=== PATIENT | female | born 2005 ===

== ENCOUNTER 2024-07-24 10:07 | Outpatient (AMB) | payer OTHER, SELFPAY ==
[2024-07-24 10:11] VITALS: BP 104/60; PULSE 86; TEMP 37.2; O2SAT 98; BMI 22.0
--- NOTE | 2024-07-24 10:11 | A.OFFPC_ITS ---
Vital Signs 07/24/24 10:11 Height 5 ft 1 in Weight 116 lb 6.4 oz BMI 22.0 BP 104/60 Blood Pressure Location Lt brachial Position Sitting Pulse 86 Pulse Source Pulse Oximeter Temp 98.9 F Temp Source Oral Pulse Oximetry (%) 98 Oxygen Delivery Method Room Air Intake Visit Reasons: establish care Intake Note: Patient is a new patient here to establish care. Transferring care from [facility]. Medical records have been requested and have not received. Commissary Officer Required: No Accompanied by: Self / Same As Patient Allergies No Known Allergies Allergy (Unverified 07/24/24 10:29) Medication List - Last Reconciled 07/24/24 by TROY Michel No Known Home Meds Tobacco use date assessed: 07/24/24 Dental Screening Dental Screen Date: 07/24/24 Did you have a dental visit in the last 12 months?: Yes Did you have a dental problem in the last 6 months where you did not have access to dental care?: No Was dental information given to patient?: Patient has dentist HPI establish care HPI Details The patient is 18-year-old female presenting to establish care Previous PCP: [facility] Last visit: Last PE: 2 years Specialist: n/a OBGYN: no-will put in a referral Past medical history: Asthma-no medication right now, mild scoliosis Medications: Family HX: Mother had breast mass, first cousin has breast mass, sister thyroid mass Problem: Reports that intermittent symptoms of feeling like she is having an asthma attack these symptoms are lasting for 2-3 minutes-denies wheezing or heart palpitation or chest pain For three weeks she was having back pain that since has settled now reports that she thinks that it is due to bad pasture reports that it is a mild pain that feels like stiffness in her back obgyn referral-[facility] Medical History (Updated 07/24/24 @ 15:37 by TROY Michel) Asthma Scoliosis Surgical History Hx of tonsillectomy Family History Mother H/O: hysterectomy Arthritis Sister Thyroid cancer Other Breast mass Social History Household Members Other:: Mother and younger brother Housing: House Alcohol intake: never Patient Tobacco Use Status: Never used Tobacco e-Cigarette/Vaping Use: Never Used Second Hand Smoke Exposure: No service: No Current occupational status: employed and student 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 1. Little interest or pleasure in doing things: not at all 2. Feeling down, depressed, or hopeless: not at all 3. Trouble falling or staying asleep, or sleeping too much: more than half the days 4. Feeling tired or having little energy: several days 5. Poor appetite or overeating: nearly every day 6. Feeling bad about yourself - or that you are a failure or have let yourself or your family down: not at all 7. Trouble concentrating on things, such as reading the newspaper or watching television: not at all 8. Moving or speaking so slowly that other people could have noticed. Or the opposite - being so fidgety or restless that you have been moving around a lot more than usual: not at all 9. Thoughts that you would be better off or of hurting yourself in some way: not at all Total score: 6 Depression Screening Interpretation: Positive Depression Screening Done: Yes 25375 - PHQ-9 Billing: Yes Source: Developed by Drs. Milo Almeida, Corrina Garcia, Manoj Aguayo and colleagues, with an educational damaris from [employer]. Thrive Questionnaire Date Thrive assessed: 07/24/24 I am a: Patient What is your living situation today?: I have a steady place to live Within the past 12 months, did the food you bought not last and you didn't have the money to get more?: I choose not to answer this question Within the past 12 months, did you worry whether your food would run out before you got money to buy more?: I choose not to answer this question Do you have trouble paying for medicines?: No Do you have trouble getting transportation to medical appointments?: No Do you have trouble paying your heating and electricity bill?: Yes Do you have trouble taking care of your child, family member or friend?: No Do you have trouble with day-to-day activities such as bathing, preparing meals, shopping, managing finances, etc.?: No Are you currently unemployed and looking for a job?: No Are you interested in more education?: I choose not to answer this question Please select the resources that you would like help with: Utilities Currently or been in a relationship where the following occur: No concerns reported THRIVE Score: 1 AUDIT C Alcohol Use Questionnaire (AUDIT-C) 1. How often do you have a drink containing alcohol?: Never Total Score: 0 SANDEEP-7 AMB Questionnaire SANDEEP-7 Date SANDEEP - 7 assessed: 07/24/24 Feeling nervous, anxious, or on edge: 1 = Several days Not being able to stop or control worryin = Not at all Worrying too much about different things: 2 = More than half the days Trouble relaxin = Not at all Being so restless that it is hard to sit still: 0 = Not at all Becoming easily annoyed or irritable: 1 = Several days Feeling afraid as if something awful might happen: 0 = Not at all Total SANDEEP-7 score (0-4 normal; 5-9 mild; 10-14 moderate; 15-21 severe): 4 Source: Developed by Drs. Milo Almeida, Corrina Garcia, Manoj Aguayo and colleagues, with an educational damaris from [employer]. SANDEEP-7 Assessment Billing SANDEEP-7 Assessment Tool: SANDEEP-7 Assessment 17680 Review of Systems Const Denies headache(s) Eyes Denies loss of vision ENT Denies vertigo, Denies dizziness, Denies headache(s) and Denies sore throat Card Denies chest pain, Denies leg edema and Denies lightheadedness Resp Denies cough, Denies hemoptysis and Denies wheezing GI Denies abdominal pain, Denies melena, Denies constipation, Denies diarrhea and Denies vomiting Denies urinary frequency, Denies dysuria and Denies urinary urgency Musc Denies arthralgias, Denies joint swelling, Denies numbness and Denies tingling Neuro Denies Abnormal speech present, Denies behavioral changes, Denies vertigo, Denies dizziness, Denies headache(s), Denies loss of vision, Denies memory loss, Denies numbness and Denies tingling Psych Denies anxiety, Denies behavioral changes, Denies depression, Denies memory loss and Denies panic attacks Kwesi/Lymph Denies easy bleeding and Denies easy bruising Aller/Immun Denies wheezing Physical exam (Primary Care) Vital Signs: Last Vital Signs Temp 98.9 F 07/24/24 10:11 Pulse 86 07/24/24 10:11 BP 104/60 07/24/24 10:11 Pulse Ox 98 07/24/24 10:11 Oxygen Delivery Method Room Air 07/24/24 10:11 BMI result Body Mass Index 22.0 Tobacco/Smoking Status: Tobacco use Status Tobacco use date assessed 07/24/24 07/24/24 10:27 Patient Tobacco Use Status Never used Tobacco 07/24/24 10:27 e-Cigarette/Vaping Use Never Used 07/24/24 10:27 PHQ-9: PHQ-9 Score PHQ-9: Total score 6 07/24/24 10:35 Depression Screening Interpretation: Positive Thrive Assessment: Date of Thrive Assessment Date Thrive assessed 07/24/24 07/24/24 10:27 Currently or been in a relationship where the following occur: No concerns reported Const General: healthy appearing, no acute distress, alert and awake Nutritional Appearance: well nourished Orientation/consciousness: oriented to person, oriented to place and oriented to time HENMT Ears: TM's normal bilaterally General nose exam: Normal nasal mucous membranes and turbinates present Eyes Conjunctivae: conjunctivae normal Sclerae: sclerae normal Pupils: Equal, round and reactive pupils present Neck Neck: Yes no lymphadenopathy and Yes no JVD Thyroid: Thyroid normal Carotids: no bruits Resp Effort & Inspection: normal respiratory effort and not tachypneic Auscultation: no crackles, no rales, no rhonchi and no wheezes Cardio Rate: regular rate Rhythm: regular rhythm Heart sounds: no murmurs and normal S1 and S2 GI Palpation (GI): Soft to palpation, nontender, no hepatomegaly and no splenomegaly Auscultation: normal bowel sounds General: Yes no CVA tenderness Back/Spine/Pelvis Back: no CVA tenderness Skin General skin exam: no rashes or lesions noted and dry skin Neuro General: oriented to person, oriented to place and oriented to time Cranial nerves: Yes Equal, round and reactive pupils present Speech: No Abnormal speech present Gait exam (Neuro): Normal gait present Motor exam (neuro): no tremor noted Extrem Right upper extremity: full ROM Left upper extremity: full ROM Right lower extremity: full ROM; no edema Left lower extremity: full ROM; no edema Psych Mental Status: mental status grossly normal Speech and movement: Normal speech and movement present Affect: normal affect Attitude: cooperative Thought process: Normal thought process present Coding Level of Care Code New Pt Level 3 (73359) Diagnoses Mild persistent asthma without complication J45.30 Asthma severity: mild Asthma persistence: persistent Asthma complication type: uncomplicated Juvenile idiopathic scoliosis of thoracolumbar region M41.115 Scoliosis type: idiopathic Idiopathic scoliosis type: juvenile Spinal region: thoracolumbar Women's annual routine gynecological examination Z01.419 Additional Codes SANDEEP-7 Assessment Billing - SANDEEP-7 Assessment Tool: SANDEEP-7 Assessment 40888 ([id number]) PHQ-9 - 54662 - PHQ-9 Billing: Yes ([id number]) Time Spent (min) 29 Assessment & Plan Assessment & Plan (1) Asthma: Code(s): J45.909 - Unspecified asthma, uncomplicated Category: Medical Qualifiers: Asthma severity: mild Asthma persistence: persistent Asthma complication type: uncomplicated Qualified Code(s): J45.30 - Mild persistent asthma, uncomplicated Plan: Patient reports that infrequently she feels some heaviness in the chest that lasts for 2 to 3 minutes Reports she does have a history of asthma but has not used an inhaler in a long time Discussed with the patient that even though her asthma is mild she should have a rescue inhaler just in case Albuterol sulfate 90 mcg/actuation 2 puffs inhalation Q 4-6 hours p.r.n. ordered (2) Scoliosis: Code(s): M41.9 - Scoliosis, unspecified Category: Medical Qualifiers: Scoliosis type: idiopathic Idiopathic scoliosis type: juvenile Spinal region: thoracolumbar Qualified Code(s): M41.115 - Juvenile idiopathic scoliosis, thoracolumbar region Plan: The patient reports that she has mild scoliosis. Reports that 3 weeks ago she had intense back pain that has resolved Reports that she thinks it is related to poor posture. Back stretches was printed and given to patient. Discussed with the patient that if her condition worsens we could send her to PT to be evaluated (3) Women's annual routine gynecological examination: Code(s): Z01.419 - Encounter for gynecological examination (general) (routine) without abnormal findings Category: Medical Plan: OBGYN referral placed Plan Patient will return in 6 weeks for physical examination and lab review Orders: Orders Complete Blood Count Auto Diff Today Z00.00 - Encounter for general adult medical examination without abnormal findings Comprehensive [place]. Panel Fast Today Z00.00 - Encounter for general adult medical examination without abnormal findings Lipid Panel Today Z00.00 - Encounter for general adult medical examination without abnormal findings Vitamin D 25-OH Total Today Z00.00 - Encounter for general adult medical examination without abnormal findings UA CC w/rflx Micro + Cult Today Z00.00 - Encounter for general adult medical examination without abnormal findings TSH reflex Free T4 Today Z00.00 - Encounter for general adult medical examination without abnormal findings Glucose Fasting Today Z00.00 - Encounter for general adult medical examination without abnormal findings Referrals [facility] Referral Z01.419 - Encounter for gynecological examination (general) (routine) without abnormal findings Medications: New albuterol sulfate 90 mcg/actuation 2 puffs inhalation Q4-6H PRN 8.5 grams 3RF shortness of breath or wheezing J45.909 - Unspecified asthma, uncomplicated, M41.9 - Scoliosis, unspecified
== END 2024-07-24 11:10 | disposition home or self-care (01) ==
LOC: HO.HMCH 10:08
DX: J45.30 Mild persistent asthma, uncomplicated (principal); M41.115 Juvenile idiopathic scoliosis, thoracolumbar region

== ENCOUNTER → 2024-07-24 10:07 | Outpatient (BNVA) | payer OTHER, SELFPAY | DX: J45.30 Mild persistent asthma, uncomplicated (principal); M41.115 Juvenile idiopathic scoliosis, thoracolumbar region | CPT/HCPCS: 96127; 99202 ==

== ENCOUNTER 2024-08-05 09:37 | Outpatient (REF) | payer OTHER, SELFPAY ==
[2024-08-05 09:54] LABS: MANUAL DIFF FLAG NO
[2024-08-05 09:58] LABS: Basophils Percent Auto 0.5 % (0-2); Eosinophils Absolute Auto 0.3 X10*3/uL (0.0-0.4); Eosinophils Percent Auto 5.1 % (0-4); Hematocrit 39.9 % (37.0-47.0); Hemoglobin 13.8 g/dl (12.0-16.0); Imm Gran Abs Auto 0.01 X10*3/uL (0.00-0.03); Imm Gran Pct Auto 0.2 % (0.0-0.4); Lymphocytes Absolute Auto 1.8 X10*3/uL (1.2-4.9); Lymphocytes Percent Auto 30.9 % (20-40); Mean Corpuscular HGB Conc 34.6 g/dl (31.0-35.0); Mean Corpuscular Hemoglobin 29.7 pg (27.0-33.0); Mean Platelet Volume 10.2 fL (9.4-12.3); Monocytes Absolute Auto 0.4 X10*3/uL (0.1-1.2); Monocytes Percent Auto 6.9 % (2-11); Neutrophils Absolute Auto 3.2 x10*3/uL (2.0-8.3); Neutrophils Percent Auto 56.4 % (45-73); Platelet Count 194 X10*3/uL (160-400); Red Blood Count 4.64 X10*6/uL (4.20-5.50); Red Cell Distribution Width 11.9 % (11.0-16.0); White Blood Count 5.7 X10*3/uL (4.8-10.8)
[2024-08-05 10:10] LABS: Appearance Urine Clear; Color Urine Yellow; Glucose Urine UA Negative (Negative); Leukocyte Esterase Urine Negative (Negative); Nitrite Urine Negative (Negative); Specific Gravity - Urine 1.025 (1.005-1.025); UMIC TRIGGER UACC YES; Urine Blood Moderate (2+) (Negative); Urine Ketones Negative (Negative); Urine Protein Negative (Neg-Trace)
[2024-08-05 10:16] LABS: Bacteria Urine None Seen (None Seen); Hyaline Casts Urine 0-2 /LPF (0-2); Squamous Epithelial Cell Urine 0-2 /HPF (0-2); WBC Urine 0-5 /HPF (0-5)
[2024-08-05 10:33] LABS: Alanine Aminotransferase 21 U/L (0-31); Albumin Level 4.5 g/dL (3.5-5.0); Alkaline Phosphatase 52 U/L (39-117); Anion Gap 9 (12-20); Aspartate Amino Transferase 22 U/L (5-31); Bilirubin Total 0.5 mg/dL (0.0-1.0); Blood Urea Nitrogen 12 mg/dL (9-16); Calcium 9.3 mg/dL (8.4-10.2); Carbon Dioxide 25 mmol/L (22-29); Chloride 108 mmol/L (96-108); Cholesterol 130 mg/dL (<200); Estimated Glomerular Filt Rate > 60; Glucose Fasting 89 mg/dL (60-99); HDL Cholesterol 45 mg/dL (>40); LDL Cholesterol Calculated 78 mg/dL (<100); Sodium 138 mmol/L (135-145); Total Protein 7.9 g/dL (6.5-8.0); Triglycerides 37 mg/dL (<150)
[2024-08-05 10:41] LABS: TSH reflex Free T4 0.98 uIU/mL (0.32-4.0); Vitamin D 25-OH Total 33.3 ng/mL (>30)
--- OUTSIDE RECORDS SUMMARY | 2024-08-05 10:49 | XMS_ITS | Encounter Summary ---
Author Organization [facility] Address [address] [place] [address] Phone Care Team Providers Care Cross Tie Cutter Name Role Phone Provider, Kristen RANGEL Primary Care Provider Reason for Visit * Reason Comments Med Refill Encounter Details Date Type Department Care Team (Late st Contact Info) Description 05/27/2020 Refill [facility] [place] [address] [place] [address] Osmel Tucker MD [address] [place] [address] Mild intermittent asthma without complication Social History Tobacco Use Types Packs/Day Years Used Date Smoking Tobacco: Never Smokeless Tobacco: Never Hunger/Food Answer Date Recorded No 05/13/2020 Stable Housing Answer Date Recorded No 05/13/2020 Transportation Concerns Answer Date Rec orded No 05/13/2020 Hazards in Home Answer Date Recorded Yes 05/13/2020 Financing Utilities Answer Date Recorde d Yes 05/13/2020 Safety at Home Answer Date Recorded No 05/13/2020 Outside Support Answer Date Recorded No 05/13/2020 Understanding Health Concerns Answer Da te Recorded No 05/13/2020 Financing Health Concerns Answer Date R ecorded No 05/13/2020 Missing School or Work Answer Date Malachi rded No 05/13/2020 Comments No Sex and Gender Information Value Date Recorded Sex Assigned at Not on file Legal Sex Female 5:11 PM EDT Gender Identity Female 03/16/2021 9:33 AM EST Sexual Orientation Not on file documented as of this encounter Miscellaneous Notes * Telephone Encounter - Joshua Garibay LPN - 05/27/2020 10:35 AM EST Left message on for call back. * Telephone Encounter - Joshua Garibay LPN - 05/27/2020 9:26 AM EST [facility] is requesting a refill on Albuterol inhaler. Last PE was 05/13/19 documented in this encounter Plan of Treatment Not on file documented as of this encounter Visit Diagnoses Diagnosis Mild intermittent asthma without complication documented in this encounter Care Teams Cross Tie Cutter Relationship Specialty Start Date End Date Provider, MD Kristen [address] [place] [phone] PCP - General Pediatrics 06/04/22 documented as of this encounter
--- OUTSIDE RECORDS SUMMARY | 2024-08-05 10:49 | XMS_ITS | Encounter Summary ---
Author Organization [facility] Address [address] [place] [address] Phone Care Team Providers Care Aging Room Operator Name Role Phone Provider, Kristen RANGEL Primary Care Provider [phone] Encounter Details Date Type Department Care Team (Late st Contact Info) Description 12/20/2016 Conversion Encounter [facility] - [address] [phone] Social History Tobacco Use Types Packs/Day Years Used Date Smoking Tobacco: Never Assessed Comments Unknown Sex and Gender Information Value Date Recorded Sex Assigned at Not on file Legal Sex Female 5:11 PM EDT Gender Identity Female 03/16/2021 9:33 AM EST Sexual Orientation Not on file documented as of this encounter Plan of Treatment Not on file documented as of this encounter Visit Diagnoses Not on filedocumented in this encounter Care Teams Aging Room Operator Relationship Specialty Start Date End Date Provider, MD Kristen [address] [place] [phone] PCP - General Pediatrics 06/04/22 documented as of this encounter
--- OUTSIDE RECORDS SUMMARY | 2024-08-05 10:49 | XMS_ITS | Encounter Summary ---
Author Organization [facility] Address [address] [place] [address] Phone Care Team Providers Care Crown Ironer Name Role Phone Provider, Kristen RANGEL Primary Care Provider [phone] Encounter Details Date Type Department Care Team (Late st Contact Info) Description 07/21/2015 Documentation [facility] [place] Family Medicine [address] [place] [address] Family Medicine, Physician [address] [place], [place] [phone] Social History Tobacco Use Types Packs/Day Years [...] on filedocumented in this encounter Care Teams Crown Ironer Relationship Specialty Start Date End Date Provider, MD Kristen [address] [place] [phone] PCP - General Pediatrics 06/04/22 documented as of this encounter
--- OUTSIDE RECORDS SUMMARY | 2024-08-05 10:49 | XMS_ITS | Clinical Summary ---
Author Organization [facility] 's Address [address] [place] [address] Care Team Providers Care Supervisor Varnish Name Role Phone Paradise Jain MD Primary Care Provider Source Comments Please note that some or all of the patient's information could have additional privacy protections. State laws allow health care providers to render certain types of treatment to minors without parental consent. Please do not assume that this information can be shared solely by obtaining just the consent of the patient's parent/guardian. Please determine if all or part of the patient's care was rendered without parent/guardian involvement. And, if so, obtain the minor's consent prior to disclosure.[facility] Social History Tobacco Use Types Packs/Day Years Used Date Smoking Tobacco: Never Assessed Other Needs Answer Date Recorded Anything else about your child you'd like help w ith? Not on file 01/18/2023 Share good news about positive changes: Not on f ile 01/18/2023 Comments Unknown Sex and Gender Information Value Date Recorded Sex Assigned at Not on file Legal Sex Female 12:07 PM EDT Gender Identity Not on file Sexual Orientation Not on file Plan of Treatment Health Maintenance Due Date Last Done Comments DTaP/TDAP/TD VACCINES (1 - Tdap) 11/16/2010 ADOLESCENT HIV SCREENING 11/16/2016 COVID-19 Vaccine (2023-2 5 season) 2024 INFLUENZA (#1) 2024 NIRSEVIMAB VACCINES UNDER 8 MONTHS Aged Out No longer eligible based on patient's age to complete this topic Insurance [facility] ([employer]) Care Teams Supervisor Varnish Relationship Specialty Start Date End Date Paradise Jain MD [address] [place] [address] DAVID LEARY [id number] PCP - General General Pediatrics 02/10/21
--- OUTSIDE RECORDS SUMMARY | 2024-08-05 10:49 | XMS_ITS | Encounter Summary ---
Author Organization [facility] Address [address] [place] [address] Phone Care Team Providers Care Oversize Load Pilot Escort Name Role Phone Provider, Kristen RANGEL Primary Care Provider [phone] Encounter Details Date Type Department Care Team (Late st Contact Info) Description 08/10/2010 Documentation [facility] Family Medicine [address] [place] [address] Family Medicine, Physician [address] [place], [place] [id number] Social History Tobacco Use Types Packs/Day Years [...] on filedocumented in this encounter Care Teams Oversize Load Pilot Escort Relationship Specialty Start Date End Date Provider, MD Kristen [address] [place] [address] PCP - General Pediatrics 06/04/22 documented as of this encounter
--- OUTSIDE RECORDS SUMMARY | 2024-08-05 10:49 | XMS_ITS | Clinical Summary ---
Author Organization [facility] Address [address] [place] [address] Phone Care Team Providers Care Aboriginal Liaison Officer Name Role Phone Provider, Kristen RANGEL Primary Care Provider [phone] Allergies No known active allergies Medications ProAir HFA 108 (90 Base) MCG/ACT inhalerIndicatio ns:Mild intermittent asthma without complication Inhale 2 puffs every 4 (four) hours as needed for wheezing. 1 Units 10/31/19 22 Active Spacer/Aero-Hold ing Chambers (Pro Comfort Spacer Adult) miscIndications: Mild intermittent asthma without complication 1 Units once daily at approximately the same time each day. 1 each 10/31/19 22 Active D3 Super Strength 50 MCG (2000 UT) capsuleIndicatio ns:Low vitamin D level TAKE 1 CAPSULE BY MOUTH DAILY. 90 capsule 01/18/20 22 Active Active Problems Problem Noted Date Diagnosed Date Pharyngeal dysphagia 07/30/2021 Overview (07/30/2021): 07/24/21 reports gulping w/ liquids and solids for a approx 3 years; question EoE- will discuss at f/u need for UGI vs esophagram or referral to Pedi GI for endo; clarify if any NATHAN s/s Assessment & Plan (07/30/2021 4:09 PM EDT): 07/24/21 reports gulping w/ liquids and solids for a approx 3 years; question EoE- will discuss at f/u need for UGI vs esophagram or referral to Ped[facility] for endo; clarify if any NATHAN s/s COVID-19 virus infection 03/19/2021 Comedonal acne 12/22/2020 Overview (08/19/2021): 08/14/21 pt reports that she is only using the benzoyl peroxide gel and does not recall receiving Clinda topical; I have resent and asked her to use; also start OCP to help w/ acne tretinioin not working every other day as it is not helping; saw Derm here!! Acne to face only Cerave hydrating cleanser and lotion Assessment & Plan (12/22/2020 11:57 AM EDT): Cerave foaming wash and hydrating lotion, tretinoin as prescribed. Onychomycosis 07/20/2020 Overview (07/20/2020): L 1st and 2nd toes. Terbinafine 250 mg daily x 90 days. Expect about a year for toenails to grow back normally. JOSE prep of clippings done. Adjustment disorder with depressed mood 06/12/19 Overview (07/30/2021): 07/24/21 warm hand of to Mehnaz Ardon PHQ9 score 12 No SI and PSC-17 + for internalizing; excess sleep and does not feel well rested;-will obtain labs permission from 27 yr brother at visit to provide support PSC-17 + and PHQ9-score 3; sadness; pt concerned about labeling and stigma with mental health; pt counseled on wellness encompasses the whole body including the brain; CONTROL SYSTEMS SPECIALIST clinician not available for warm hand off today; however, will ask Olivia Sebastian to follow up for intake;mom Cuban speaking only Assessment & Plan (07/30/2021 4:11 PM EDT): 07/24/21 warm hand of to Mehnaz Ardon PHQ9 score 12 no SI and PSC-17 + for internalizing; excess sleep and does not feel well rested, will obtain labs permission from 27 yr brother at visit to provide support Assessment & Plan (06/12/2020 9:42 AM EST): PSC-17 + and PHQ9-score 3; sadness; pt concerned about labeling and stigma with mental health; pt counseled on wellness encompasses the whole body including the brain; CONTROL SYSTEMS SPECIALIST clinician not available for warm hand off today; however, will ask Olivia Sebastian to follow up for intake;mom Cuban speaking only BMI pediatric, 5th percentile to less than 85% f or age 0206/12/2020 Adolescent idiopathic scoliosis of thoracic lela on 05/09/2018 Mild intermittent asthma without complication Overview (06/12/2020): Hx of asthma; on ICS Qvar in the past but does not appear that pt has consistently taking it; pt overall says that she is doing well with vague SOB; pt has albuterol HFA and spacer; pt will need asthma f/u visit to discuss in greater detail & establish best asthma action plan Assessment & Plan (06/12/2020 10:01 AM EST): Hx of asthma; on ICS Qvar in the past but does not appear that pt has consistently taking it; pt overall says that she is doing well with vague SOB; pt has albuterol HFA and spacer; pt will need asthma f/u visit to discuss in greater detail & establish best asthma action plan Resolved Problems Problem Noted Date Diagnosed Date Resolved Date Toenail deformity 06/11/2020 07/20/2020 Overview (06/12/2020): Great toe; referred to Derm clinic Assessment & Plan (06/12/2020 9:43 AM EST): Great toe: referred to Derm clinic Encounters Date Type Department Care Team Description 07/07/2024 Telephone [facility] [address] [place] [address] Provider, MD Kristen Release of Information from Last 3 Months Immunizations Immunization Administration Dates Next Due DTaP 02/04/2008 DTaP 5 06/27/2005, 5,04/05/2004,01/23 H1N1 04/20/2014 HPV Vaccine 9 Valent 01/05/2016,06/02/2015 Hep A, ped/adol 10/10/2009,12/07/2008 Hep B, ped/adol 07/04/2004,04/05/2004,01/24/2004 Hib (HbOC) 04/05/2004,01/24/2004 Hib (PRP-T) 06/26/2005 IPV 02/04/2008, 5,04/05/2004,01/23 Influenza Split 01/22/2013, 2,12/15/2010,01/14,04/05/2009,02/04/2009,02/04/2008 Influenza, injectable, quadrivalent 02/17/2015,1 05/09/2013 Influenza, injectable, quadr ivalent, preservative free 02/14/2020,02/25/2019,04/21/2018,01/17,01/05/2016 MMR 03/17/2008,12/08/2004 Meningococcal Conj (Menactra) MCV4P 07/24/2021,0 06/02/2015 Pneumococcal Conjugate 06/26/2005,2004,04/05/2004,01/23 Tdap 06/02/2015 Varicella 03/17/2008,06/26/2005 Family History Medical History Relation Name Comments No Known Problems Brother 1 slime Heart disease Brother 2 china ADD / ADHD Brother 3 rosangela Developmental delay Brother 3 rosangela Diabetes Father slime Breast cancer Maternal Grandmother Anxiety disorder Mother augustin Depression Mother augustin Prostate cancer Mother's Brother Ovarian cancer Sister 1 michaelle Thyroid cancer Sister 1 michaelle Depression Sister 2 suly Relation Name Status Comments Brother 1 slime Alive Brother 2 china Alive Brother 3 rosangela Alive Father slime Alive Maternal Grandmother Mother uagustin Alive Mother's Brother Sister 1 michaelle Alive Polyps in colon , concern for breast CA, uterus removed due to +PAP Sister 2 suly Alive Social History Tobacco Use Types Packs/Day Years Used Date Smoking Tobacco: Never Smokeless Tobacco: Never Hunger/Food Answer Date Recorded In the last 12 months, did y ou or your family ever eat less than you felt you should because there wasn't enough money for food? No 07/24/2021 Stable Housing Answer Date Recorded Are you worried that in the next 2 months you may not have stable housing? No 07/24/2021 Transportation Concerns Answer Date Rec orded In the last 12 months, have you or your family ever had to go without healthcare because you didn't have a way to get there? No 07/24/2021 Hazards in Home Answer Date Recorded Think about the place you li ve. Do you have problems with any of the following? Pests (mice or roaches), mold, no/not working smoke detectors, water leaks, no window guards. No 2021 Financing Utilities Answer Date Recorde d In the last 12 months, has t he electric, gas, oil, or water company threatened to shut off your services in your home? No 07/24/2021 Safety at Home Answer Date Recorded Are you or your family worried about feeling saf e in your home? No 07/24/2021 Outside Support Answer Date Recorded Do you feel that you need mo re support from other people or programs to help you care for yourself or your family? Yes 07/24/2021 Understanding Health Concerns Answer Da te Recorded Do you need help understandi ng your or your child's healthcare needs (diagnosis, medications, plan, etc.)? No 07/24/2021 Financing Health Concerns Answer Date R ecorded In the last 12 months, was t here a time when your child needed to see a doctor or get medications or supplies but could not because of cost? No 07/24/2021 Missing School or Work Answer Date Malachi rded Did you or your child miss s chool or work because of a health problem that could have been avoided? Yes 07/24/2021 Comments No Sex and Gender Information Value Date Recorded Sex Assigned at Not on file Legal Sex Female 5:11 PM EDT Gender Identity Female 03/16/2021 9:33 AM EST Sexual Orientation Not on file Last Filed Vital Signs Vital Sign Reading Time Taken Comments Blood Pressure 122/71 10/30/2021 4:41 PM EDT Pulse 118 10/30/2021 4:41 PM EDT Temperature 36.4 ??C (97.6 ??F) 10/30/2021 4:41 PM ED T Respiratory Rate - - Oxygen Saturation 97% 10/30/2021 4:41 PM EDT Inhaled Oxygen Concentration - - Weight 49.9 kg (110 lb) 10/30/2021 4:41 PM EDT Height 153.9 cm (5' 0.6 ) 07/24/2021 9:38 AM EDT Body Mass Index - - Plan of Treatment Health Maintenance Due Date Last Done Comments Men B Vaccine (1 of 2 - Standard) 2019 Influenza Vaccines (#1) 2023 02/14/20 20, 02/25/2019, 04/21/2018, Additional history exists COVID-19 Vaccine (1 - 2023-2 5 season) 2024 Chlamydia and Gonorrhea Screening 05/06/2024 022, 05/13/2019 DTaP,Tdap,and Td Vaccines (7 - Td or Tdap) 06/02/2025 06/02/2015, 02/04/2008, 06/27/2005, Additional history exists Hepatitis B Vaccines Completed 07/04/2004, 04/05/2004, 01/24/2004 HIB Vaccines Completed 06/26/2005, 05/2003, 01/24/2004 Pneumococcal Vaccine Completed 06/26/2005, 07/04/2004, 04/05/2004, Additional history exists IPV Vaccines Completed 02/04/2008, 05/2004, 04/05/2004, Additional history exists MMR Vaccines Completed 03/17/2008, 12/08/2004 Varicella Vaccines Completed 03/17/2008, 06/26/2005 Hepatitis A Vaccines Completed 10/10/2009, 12/08/19 09 HPV Vaccines Completed 01/05/2016, 06/02/2015 Meningococcal Vaccine Completed 07/24/2021, 016 Procedures * Due to [place] [employer] law, this organization might not be sharing sensitive test results. Procedure Name Priority Date/Time Associated Diagnosis Comments CHLAMYDIA AND GONORRHEA, AMPLIFIED Routine 07/24/2021 11:06 AM EDT Screening for chlamydial disease from Last 3 Months or Most Recently Relevant to Health Maintenance Results * Due to [place] [employer] law, this organization might not be sharing sensitive test results. * Chlamydia and Gonorrhoea, Amplified (07/24/2021 11:06 AM EDT) Chlamydia Trachomatis, DNA Probe NEGATIVE (NEG) [facility] Comment: No Chlamydia Trachomatis RNA detected in this patient's sample ? (REFERENCE RANGE/NORMAL VALUE: NOT DETECTED) ? Note: This test uses glazier metal furniture- mediated amplification method to detect rRNA from C. Trachomatis URINE GC AMP PROBE NEGATIVE (NEG) [facility] Comment: No Neisseria Gonorrhoeae RNA detected in this patient's sample ? (REFERENCE RANGE/NORMAL VALUE: NOT DETECTED) ? NOTE: This test uses glazier metal furniture-mediated amplification method to detect rRNA from N.Gonorrhoeae. A negative result does not preclude infection. In the case of a negative urine result, testing of an endocervical(female) or urethral (male) specimen is recommended if there is high clinical suspicion of infection. Due to very high sensitivity of Nucleic Acid Amplification Test, false positive results may occur. Therefore, specimen handling is extremely important. In patients in whom the disease is unlikely, additional sample for testing should be considered after an initial positive result. The performance characteristics of this test have not been evaluated in children. The Aptima Combo2 assay is not intended for the evaluation of suspected sexual abuse or for other medico-legal indications. The ordering provider should assess if the patient had consensual sex without risk of sexual abuse. Consult the [facility] if needed. Contact phone number . Therapeutic failure or success cannot be determined with the Aptima Combo2 assay since nucleic acid may persist following appropriate antimicrobial therapy. The Centers for Disease Control and Prevention (CDC) recommends confirmatory retesting using culture or a different nucleic acid amplification test when positive results occur, if indicated. Testing performed or reported by [facility], a Service of [facility], [facility] [place] [address] Altaf Guallpa MD, Provider Network Mgr [facility]# [id number] Urine (Urine) 07/24/2021 11: 06 AM EDT 07/24/2021 6:51 PM EDT us Chantal Ferrari NP LAB MICROBIOLOGY - GENERAL ORDER MAKAYLA Final Result [facility] from Last 3 Months or Most Recently Relevant to Health Maintenance Care Teams Aboriginal Liaison Officer Relationship Specialty Start Date End Date Provider, MD Kristen [address] [place] [address] PCP - General Pediatrics 06/04/22
--- OUTSIDE RECORDS SUMMARY | 2024-08-05 10:49 | XMS_ITS | Encounter Summary ---
Author Organization [facility] Address [address] [place] [address] Phone Care Team Providers Care Paint Tester Name Role Phone Provider, Kristen RANGEL Primary Care Provider [phone] Reason for Visit * Reason Onset Date Comments Med Refill Med Refill 10/31/2020 Encounter Details Date Type Department Care Team (Late st Contact Info) Description 10/22/2020 Refill [facility] [address] [place] [address] Kadi Álvarez MD [address] [place] [address] Onychomycosis; Tinea pedis of both feet Social History Tobacco Use Types Packs/Day Years Used Date Smoking Tobacco: Never Smokeless Tobacco: Never Hunger/Food Answer Date Recorded In the last 12 months, did y ou or your family ever eat less than you felt you should because there wasn't enough money for food? No 06/10/2020 Stable Housing Answer Date Recorded Are you worried that in the next 2 months you may not have stable housing? No 06/10/2020 Transportation Concerns Answer Date Rec orded In the last 12 months, have you or your family ever had to go without healthcare because you didn't have a way to get there? No 06/10/2020 Hazards in Home Answer Date Recorded Think about the place you li ve. Do you have problems with any of the following? Pests (mice or roaches), mold, no/not working smoke detectors, water leaks, no window guards. Yes 2020 Financing Utilities Answer Date Recorde d In the last 12 months, has t he electric, gas, oil, or water company threatened to shut off your services in your home? No 06/10/2020 Safety at Home Answer Date Recorded Are you or your family worried about feeling saf e in your home? No 06/10/2020 Outside Support Answer Date Recorded Do you feel that you need mo re support from other people or programs to help you care for yourself or your family? No 06/10/2020 Understanding Health Concerns Answer Da te Recorded Do you need help understandi ng your or your child's healthcare needs (diagnosis, medications, plan, etc.)? No 06/10/2020 Financing Health Concerns Answer Date R ecorded In the last 12 months, was t here a time when your child needed to see a doctor or get medications or supplies but could not because of cost? No 06/10/2020 Missing School or Work Answer Date Malachi rded Did you or your child miss s chool or work because of a health problem that could have been avoided? No 06/10/2020 Comments No Sex and Gender Information Value Date Recorded Sex Assigned at Not on file Legal Sex Female 5:11 PM EDT Gender Identity Female 03/16/2021 9:33 AM EST Sexual Orientation Not on file documented as of this encounter Miscellaneous Notes * Telephone Encounter - Aysha Gu LPN - 10/23/2020 8:29 AM EDT Faxed refill request -has pending derm appt 12/21/20 documented in this encounter Plan of Treatment Not on file documented as of this encounter Visit Diagnoses Diagnosis Onychomycosis Dermatophytosis of nail Tinea pedis of both feet documented in this encounter Care Teams Paint Tester Relationship Specialty Start Date End Date Provider, MD Kristen [address] [place] [phone] PCP - General Pediatrics 06/04/22 documented as of this encounter
--- OUTSIDE RECORDS SUMMARY | 2024-08-05 10:49 | XMS_ITS | Encounter Summary ---
Author Organization [facility] Address [address] [place] [address] Phone Care Team Providers Care Foreclosure Clerk Name Role Phone Provider, Kristen RANGEL Primary Care Provider [phone] Reason for Visit * Reason Comments Med Refill Encounter Details Date Type Department Care Team (Late st Contact Info) Description 12/15/2017 Refill [facility] [place] [address] [place] [address] Rani Chao NP [address] [facility] [address] [place] [address] Mild intermittent asthma without complication (Primary Dx) Social History Tobacco Use Types Packs/Day Years Used Date Smoking Tobacco: Never Smokeless Tobacco: Never Comments Unknown Sex and Gender Information Value Date Recorded Sex Assigned at Not on file Legal Sex Female 5:11 PM EDT Gender Identity Female 03/16/2021 9:33 AM EST Sexual Orientation Not on file documented as of this encounter Miscellaneous Notes * Telephone Encounter - Bethany Mendoza LPN - 12/16/2017 9:10 AM EDT Refill request for Q-iain and Proair. Last PE 06/13/16./TAVON documented in this encounter Plan of Treatment Not on file documented as of this encounter Visit Diagnoses Diagnosis Mild intermittent asthma without complication- Primary documented in this encounter Care Teams Foreclosure Clerk Relationship Specialty Start Date End Date Provider, MD Kristen [address] [place] [phone] PCP - General Pediatrics 06/04/22 documented as of this encounter
== END 2024-08-05 09:38 | disposition home or self-care (01) ==
LOC: HO.10HDL 09:37
DX: R00.2 Palpitations (principal); J45.909 Unspecified asthma, uncomplicated; Z00.00 Encounter for general adult medical examination without abnormal findings
CPT/HCPCS: 36415; 80053; 80061; 81001; 82306; 84443; 85025; 99212

== ENCOUNTER 2024-08-05 09:58 | Outpatient (AMB) | payer OTHER, SELFPAY ==
--- NOTE | 2024-08-05 10:01 | MHC.PC.OV ---
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 Accompanied by: Self / Same As Patient Allergies No Known Allergies Allergy (Verified 08/05/24 10:15) Medication List - Last Reconciled 08/05/24 by TROY Michel albuterol sulfate 90 mcg/actuation 2 puffs inhalation Q4-6H PRN Tobacco use date assessed: 08/05/24 Dental Screening Dental Screen Date: 07/24/24 HPI Tachycardia HPI Details Patient is a 18-year-old female with PMH scoliosis and asthma The patient reports she was having heart palpitation and she went to the ER in [place] Reports that they did an EKG and blood work that were all normal The patient reports that her heart palpitation are random; it was once in a while Reports that her palpitation is more frequently now. The patient reports that at time if feels like her heart palpitation is tied to eating spicy foods and other times this is completely random and cause her to be anxious The patient reports that it feels like her heart is trying to pump harder She denies heart burn. Denies chest pain, sob or dizziness. The patient verbalized that she has anxiety when the palpitations happened but she is not convinced that the anxiety is happening before the heart palpitation. 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 [employer] Cognitive needs: No Hearing needs: No Vision needs: No Female Reproductive History Menstrual Age of Menarche: 9 Date of last menstrual period: 07/29/24 Questionnaire Thrive Questionnaire Date Thrive assessed: 08/05/24 I am a: Patient What is your living situation today?: I have a steady place to live Within the past 12 months, did the food you bought not last and you didn't have the money to get more?: I choose not to answer this question Within the past 12 months, did you worry whether your food would run out before you got money to buy more?: I choose not to answer this question Do you have trouble paying for medicines?: No Do you have trouble getting transportation to medical appointments?: No Do you have trouble paying your heating and electricity bill?: Yes Do you have trouble taking care of your child, family member or friend?: No Do you have trouble with day-to-day activities such as bathing, preparing meals, shopping, managing finances, etc.?: No Are you currently unemployed and looking for a job?: No Are you interested in more education?: I choose not to answer this question Please select the resources that you would like help with: Utilities Currently or been in a relationship where the following occur: No concerns reported THRIVE Score: 1 AUDIT C Alcohol Use Questionnaire (AUDIT-C) 1. How often do you have a drink containing alcohol?: Never 3. How often do you have six or more drinks on one occasion?: Never Total Score: 0 SANDEEP-7 AMB Questionnaire SANDEEP-7 Date SANDEEP - 7 assessed: 07/24/24 Source: Developed by Drs. Milo Almeida, Corrina Garcia, Manoj Aguayo and colleagues, with an educational damaris from [employer]. Review of Systems ENT Denies sore throat Card Denies chest pain, Denies leg edema, Denies lightheadedness and Reports palpitations Resp Denies cough and Denies hemoptysis GI Denies abdominal pain, Denies melena, Denies constipation, Denies diarrhea and Denies vomiting Psych Reports anxiety (with heart palpitation) Endo Reports palpitations Physical exam (Primary Care) Vital Signs: Last Vital Signs Pulse 76 08/05/24 10:02 Resp 16 08/05/24 10:02 BP 98/62 08/05/24 10:02 Pulse Ox 98 08/05/24 10:02 Oxygen Delivery Method Room Air 08/05/24 10:02 BMI result Body Mass Index 21.7 Tobacco/Smoking Status: Tobacco use Status Tobacco use date assessed 08/05/24 08/05/24 10:11 Patient Tobacco Use Status Never used Tobacco 08/05/24 10:11 e-Cigarette/Vaping Use Never Used 08/05/24 10:11 Thrive Assessment: Date of Thrive Assessment Date Thrive assessed 08/05/24 08/05/24 10:11 Currently or been in a relationship where the following occur: No concerns reported Const General: healthy appearing, no acute distress, alert and awake Nutritional Appearance: well nourished HENMT Ears: TM's normal bilaterally General nose exam: Normal nasal mucous membranes and turbinates present Eyes Conjunctivae: conjunctivae normal Sclerae: sclerae normal Neck Neck: Yes no lymphadenopathy and Yes no JVD Thyroid: Thyroid normal Carotids: no bruits Resp Effort & Inspection: normal respiratory effort and not tachypneic Auscultation: no crackles, no rales, no rhonchi and no wheezes Cardio Rate: regular rate Rhythm: regular rhythm Heart sounds: no murmurs and normal S1 and S2 GI Palpation (GI): Soft to palpation, nontender, no hepatomegaly and no splenomegaly Auscultation: normal bowel sounds Psych Affect: normal affect Attitude: cooperative Thought process: Normal thought process present Coding Level of Care Code Est Pt Level 3 (78089) Diagnoses Heart palpitations R00.2 Time Spent (min) 28 Assessment & Plan Assessment & Plan (1) Heart palpitations: Code(s): R00.2 - Palpitations Category: Medical Plan: A 5-day Holter monitor was ordered. Discussed with the patient that if she start having chest pain, sob or worsening of the heart palpitation, she should go to the ER Orders: Orders ECG 5 day holter monitor Today R00.2 - Palpitations
[2024-08-05 10:02] VITALS: BP 98/62; PULSE 76; RESP 16; O2SAT 98; BMI 21.7
--- OUTSIDE RECORDS SUMMARY | 2024-08-05 11:27 | XMS_ITS | Encounter Summary ---
Author Organization [facility] Address [address] [place] [address] Phone Care Team Providers Care Security Flex Utility Officer Name Role Phone Provider, Kristen RANGEL Primary Care Provider [phone] Encounter Details Date Type Department Care Team (Late st Contact Info) Description 07/21/2015 Documentation [facility] [place] [facility] [address] [place] [address] Family Medicine, Physician [address] [place], [place] [address] Social History Tobacco Use Types Packs/Day Years [...] on filedocumented in this encounter Care Teams Security Flex Utility Officer Relationship Specialty Start Date End Date Provider, MD Kristen [address] [place] [address] PCP - General Pediatrics 06/04/22 documented as of this encounter
--- OUTSIDE RECORDS SUMMARY | 2024-08-05 11:27 | XMS_ITS | Encounter Summary ---
Author Organization [facility] Address [address] [place] [address] Phone Care Team Providers Care Television Analyzer Name Role Phone Provider, Kristen RANGEL Primary Care Provider [phone] Reason for Visit * Reason Comments Med Refill Encounter Details Date Type Department Care Team (Late st Contact Info) Description 05/27/2020 Refill [facility] [place] [address] [place] [address] Osmel Tucker MD [address] [place] [address] Mild intermittent asthma without complication Social History [...] complication documented in this encounter Care Teams Television Analyzer Relationship Specialty Start Date End Date Provider, MD Kristen [address] [place] [phone] PCP - General Pediatrics 06/04/22 documented as of this encounter
--- OUTSIDE RECORDS SUMMARY | 2024-08-05 11:27 | XMS_ITS | Encounter Summary ---
Author Organization [facility] Address [address] [place] [address] Phone Care Team Providers Care Quality Nurse Name Role Phone Provider, Kristen RANGEL Primary Care Provider [phone] Encounter Details Date Type Department Care Team (Late st Contact Info) Description 08/10/[address] [facility] [facility] Family Medicine [address] [place] [address] Family Medicine, Physician [address] [place], [place] [address] Social History Tobacco Use Types Packs/Day Years [...] on filedocumented in this encounter Care Teams Quality Nurse Relationship Specialty Start Date End Date Provider, MD Kristen [address] [place] [phone] PCP - General Pediatrics 06/04/22 documented as of this encounter
--- OUTSIDE RECORDS SUMMARY | 2024-08-05 11:27 | XMS_ITS | Encounter Summary ---
Author Organization [facility] Address [address] [place] [address] Phone Care Team Providers Care Post Office Manager Name Role Phone Provider, Kristen RANGEL Primary Care Provider [phone] Reason for Visit * Reason Comments Med Refill Encounter Details Date Type Department Care Team (Late st Contact Info) Description 12/15/2017 Refill [facility] [place] [address] [place] [address] Rani Chao NP [address] [facility] [address] [place] [address] Mild intermittent asthma without complication (Primary Dx) [...] Primary documented in this encounter Care Teams Post Office Manager Relationship Specialty Start Date End Date Provider, MD Kristen [address] [place] [phone] PCP - General Pediatrics 06/04/22 documented as of this encounter
--- OUTSIDE RECORDS SUMMARY | 2024-08-05 11:27 | XMS_ITS | Clinical Summary ---
Author Organization [facility] 's Address [address] [place] [address] Care Team Providers Care Bar Machine Operator Name Role Phone Paradise Jain MD Primary Care Provider [phone] Source Comments Please note that some or [...] so, obtain the minor's consent prior to disclosure.[facility] Social History Tobacco Use Types Packs/Day [...] patient's age to complete this topic Insurance [facility] [employer] ([employer]) Care Teams Bar Machine Operator Relationship Specialty Start Date End Date Paradise Jain MD [address] [place] [address] DAVID LEARY [id number] PCP - General General Pediatrics 02/10/21
--- OUTSIDE RECORDS SUMMARY | 2024-08-05 11:27 | XMS_ITS | Encounter Summary ---
Author Organization [facility] Address [address] [place] [address] Phone Care Team Providers Care Housing Court Judge Name Role Phone Provider, Kristen RANGEL Primary Care Provider [phone] Encounter Details Date Type Department Care Team (Late st Contact Info) Description 12/20/2016 Conversion Encounter [facility] - [address] [id number] Social History Tobacco Use Types Packs/Day Years [...] on filedocumented in this encounter Care Teams Housing Court Judge Relationship Specialty Start Date End Date Provider, MD Kristen [address] [place] [address] PCP - General Pediatrics 06/04/22 documented as of this encounter
--- OUTSIDE RECORDS SUMMARY | 2024-08-05 11:27 | XMS_ITS | Clinical Summary ---
Author Organization [facility] Address [address] [place] [address] Phone Care Team Providers Care Emblem Cutter Name Role Phone Provider, Kristen RANGEL Primary Care Provider [phone] Allergies No known active allergies Medications ProAir [...] encompasses the whole body including the brain; JOINT MAKER MACHINE clinician not available for warm hand off today; however, will ask Olivia Sebastian to follow up for intake;mom Nepalese speaking only Assessment & Plan (07/30/2021 4:11 [...] encompasses the whole body including the brain; JOINT MAKER MACHINE clinician not available for warm hand off today; however, will ask Olivia Sebastian to follow up for intake;mom Nepalese speaking only BMI pediatric, 5th percentile to [...] Type Department Care Team Description 07/07/2024 Telephone [facility] [place] [address] [place] [address] Provider, MD Kristen Release of [...] Alive Father slime Alive Maternal Grandmother Mother augustin Alive Mother's Brother Sister 1 michaelle Alive [...] Completed 07/24/2021, 016 Procedures * Due to [place] [employer] law, this organization might not be sharing sensitive test results. Procedure Name Priority Date/Time Associated Diagnosis Comments CHLAMYDIA AND GONORRHEA, AMPLIFIED Routine 07/24/2021 11:06 AM EDT Screening for chlamydial disease from Last 3 Months or Most Recently Relevant to Health Maintenance Results * Due to [place] [employer] law, this organization might not be sharing sensitive test results. * Chlamydia and Gonorrhoea, Amplified (07/24/2021 11:06 AM EDT) Chlamydia Trachomatis, DNA Probe NEGATIVE (NEG) [facility] Comment: No Chlamydia Trachomatis RNA detected in this patient's sample ? (REFERENCE RANGE/NORMAL VALUE: NOT DETECTED) ? Note: This test uses director pharmacovigilance- mediated amplification method to detect rRNA from C. Trachomatis URINE GC AMP PROBE NEGATIVE (NEG) [facility] Comment: No Neisseria Gonorrhoeae RNA detected in this patient's sample ? (REFERENCE RANGE/NORMAL VALUE: NOT DETECTED) ? NOTE: This test uses director pharmacovigilance-mediated amplification method to detect rRNA from N.Gonorrhoeae. [...] without risk of sexual abuse. Consult the [facility] if needed. Contact phone number . Therapeutic failure or success cannot be determined with the Aptima Combo2 assay since nucleic acid may persist following appropriate antimicrobial therapy. The Centers for Disease Control and Prevention (CDC) recommends confirmatory retesting using culture or a different nucleic acid amplification test when positive results occur, if indicated. Testing performed or reported by [facility], a Service of [facility], [facility]ian [place] [address] Altaf Guallpa MD, Bobbin Drier [facility]# [id number] Urine (Urine) 07/24/2021 11: 06 AM EDT 07/24/2021 6:51 PM EDT us Chantal Ferrari NP LAB MICROBIOLOGY - GENERAL ORDER MAKAYLA Final Result [facility] from Last 3 Months or Most Recently Relevant to Health Maintenance Care Teams Emblem Cutter Relationship Specialty Start Date End Date Provider, MD Kristen [address] [place] [address] PCP - General Pediatrics 06/04/22
--- OUTSIDE RECORDS SUMMARY | 2024-08-05 11:27 | XMS_ITS | Encounter Summary ---
Author Organization [facility] Address [address] [place] [address] Phone Care Team Providers Care Backend Developer Name Role Phone Provider, Kristen RANGEL Primary Care Provider [phone] Reason for Visit * Reason Onset Date Comments Med Refill Med Refill 10/31/2020 Encounter Details Date Type Department Care Team (Late st Contact Info) Description 10/22/2020 Refill [facility] [place] [address] [place] [address] Kadi Álvarez MD [address] [place] [address] Onychomycosis; Tinea pedis of both feet Social [...] feet documented in this encounter Care Teams Backend Developer Relationship Specialty Start Date End Date Provider, MD Kirsten [address] [place] [phone] PCP - General Pediatrics 06/04/22 documented as of this encounter
== END 2024-08-05 10:39 | disposition home or self-care (01) ==
LOC: HO.HMCH 09:59
DX: R00.2 Palpitations (principal)

== ENCOUNTER → 2024-08-11 08:59 | Outpatient (REF) | payer OTHER, SELFPAY ==
--- OUTSIDE RECORDS SUMMARY | 2024-08-11 09:49 | XMS_ITS | Encounter Summary ---
Author Organization [facility] Address [address] [place] [address] Phone Care Team Providers Care Railway Equipment Operator Name Role Phone Provider, Kristen RANGEL Primary Care Provider [phone] Encounter Details Date Type Department Care Team (Late st Contact Info) Description 08/10/2010 Documentation [facility] [place] Medicine [address] [place] [address] Family Medicine, Physician [address] [place], [place] [address] Social History Tobacco Use Types Packs/Day Years [...] on filedocumented in this encounter Care Teams Railway Equipment Operator Relationship Specialty Start Date End Date Provider, MD Kristen [address] [place] [address] PCP - General Pediatrics 06/04/22 documented as of this encounter
--- OUTSIDE RECORDS SUMMARY | 2024-08-11 09:49 | XMS_ITS | Encounter Summary ---
Author Organization [facility] Address [address] [place] [address] Phone Care Team Providers Care Land Surveying Party Chief Name Role Phone Provider, Kristen RANGEL Primary Care Provider [phone] Encounter Details Date Type Department Care Team (Late st Contact Info) Description 12/20/2016 Conversion Encounter [facility] - [address] [phone] Social History Tobacco Use Types Packs/Day Years [...] on filedocumented in this encounter Care Teams Land Surveying Party Chief Relationship Specialty Start Date End Date Provider, MD Kristen [address] [place] [address] PCP - General Pediatrics 06/04/22 documented as of this encounter
--- OUTSIDE RECORDS SUMMARY | 2024-08-11 09:49 | XMS_ITS | Encounter Summary ---
Author Organization [facility] Address [address] [place] [address] Phone Care Team Providers Care Marketing Analytics Analyst Name Role Phone Provider, Kristen RANGEL Primary Care Provider [phone] Reason for Visit * Reason Comments Med Refill Encounter Details Date Type Department Care Team (Late st Contact Info) Description 12/15/2017 Refill [facility] [place] [address] [place] [address] Rani Chao NP [address] [facility] [address] [place] [address] Mild intermittent asthma without complication (Primary Dx) [...] Primary documented in this encounter Care Teams Marketing Analytics Analyst Relationship Specialty Start Date End Date Provider, MD Kristen [address] [place] [address] PCP - General Pediatrics 06/04/22 documented as of this encounter
--- OUTSIDE RECORDS SUMMARY | 2024-08-11 09:49 | XMS_ITS | Encounter Summary ---
Author Organization [facility] Address [address] [place] [address] Phone Care Team Providers Care Commercial Makeup Artist Name Role Phone Provider, Kristen RANGEL Primary Care Provider [phone] Encounter Details Date Type Department Care Team (Late st Contact Info) Description 07/21/2015 Documentation [facility] Family Medicine [address] [place] [address] Family Medicine, Physician [address] [place], [place] [phone] Social History Tobacco Use Types Packs/Day Years [...] on filedocumented in this encounter Care Teams Commercial Makeup Artist Relationship Specialty Start Date End Date Provider, MD Kristen [address] [place] [address] PCP - General Pediatrics 06/04/22 documented as of this encounter
--- OUTSIDE RECORDS SUMMARY | 2024-08-11 09:49 | XMS_ITS | Encounter Summary ---
Author Organization [facility] Address [address] [place], [place] [id number] Phone Care Team Providers Care Photographic Developer And Printer Name Role Phone Provider, Kristen RANGEL Primary Care Provider [phone] Reason for Visit * Reason Comments Med Refill Encounter Details Date Type Department Care Team (Late st Contact Info) Description 05/27/2020 Refill [facility] [place] [address] [place] [address] Osmle Tucker MD [address] [place] [address] Mild intermittent asthma without complication Social History [...] complication documented in this encounter Care Teams Photographic Developer And Printer Relationship Specialty Start Date End Date Provider, MD Kristen [address] [place] [phone] PCP - General Pediatrics 06/04/22 documented as of this encounter
--- OUTSIDE RECORDS SUMMARY | 2024-08-11 09:49 | XMS_ITS | Encounter Summary ---
Author Organization [facility] Address [address] [place] [address] Phone Care Team Providers Care Prescription Eyeglass Maker Name Role Phone Provider, Kristen RANGEL Primary Care Provider [phone] Reason for Visit * Reason Onset Date Comments Med Refill Med Refill 10/31/2020 Encounter Details Date Type Department Care Team (Late st Contact Info) Description 10/22/2020 Refill [facility] [place] [address] [place] [address] Kadi Álvarez MD [address] [place] [address] Onychomycosis; Tinea pedis of both feet Social [...] feet documented in this encounter Care Teams Prescription Eyeglass Maker Relationship Specialty Start Date End Date Provider, MD Kristen [address] [place] [phone] PCP - General Pediatrics 06/04/22 documented as of this encounter
--- OUTSIDE RECORDS SUMMARY | 2024-08-11 09:49 | XMS_ITS | Clinical Summary ---
Author Organization [facility] 's Address [address] [place] [address] Care Team Providers Care Knife Machine Operator Name Role Phone Paradise Jain [...] so, obtain the minor's consent prior to disclosure.[facility] Social History Tobacco Use Types Packs/Day [...] patient's age to complete this topic Insurance [facility] ([employer]) Care Teams Knife Machine Operator Relationship Specialty Start Date End Date Paradise Jain MD [address] [place] [address] DAVID LEARY [id number] PCP - General General Pediatrics 02/10/21
--- OUTSIDE RECORDS SUMMARY | 2024-08-11 09:49 | XMS_ITS | Clinical Summary ---
Author Organization [facility] Address [address] [place] [address] Phone Care Team Providers Care Portable Track Crew Chief Name Role Phone Provider, Kristen RANGEL Primary Care Provider [phone] Allergies No known active allergies Medications ProAir [...] Pedi GI for endo; clarify if any NAHTAN s/s COVID-19 virus infection 03/19/2021 Comedonal acne [...] encompasses the whole body including the brain; HEEL SORTER clinician not available for warm hand off today; however, will ask Olivia Sebastian to follow up for intake;mom Samoan speaking only Assessment & Plan (07/30/2021 4:11 [...] encompasses the whole body including the brain; HEEL SORTER clinician not available for warm hand off today; however, will ask Olivia Sebastian to follow up for intake;mom Samoan speaking only BMI pediatric, 5th percentile to [...] Type Department Care Team Description 07/07/2024 Telephone [facility] [place] [address] [place] [address] Provider, MD Kristen Release of [...] Developmental delay Brother 3 rosangela Diabetes Father lsime Breast cancer Maternal Grandmother Anxiety disorder Mother [...] Completed 07/24/2021, 016 Procedures * Due to [place] [employer] law, this organization might not be sharing sensitive test results. Procedure Name Priority Date/Time Associated Diagnosis Comments CHLAMYDIA AND GONORRHEA, AMPLIFIED Routine 07/24/2021 11:06 AM EDT Screening for chlamydial disease from Last 3 Months or Most Recently Relevant to Health Maintenance Results * Due to [place] [employer] law, this organization might not be sharing sensitive test results. * Chlamydia and Gonorrhoea, Amplified (07/24/2021 11:06 AM EDT) Chlamydia Trachomatis, DNA Probe NEGATIVE (NEG) [facility] Comment: No Chlamydia Trachomatis RNA detected in this patient's sample ? (REFERENCE RANGE/NORMAL VALUE: NOT DETECTED) ? Note: This test uses order picker- mediated amplification method to detect rRNA from C. Trachomatis URINE GC AMP PROBE NEGATIVE (NEG) [facility] Comment: No Neisseria Gonorrhoeae RNA detected in this patient's sample ? (REFERENCE RANGE/NORMAL VALUE: NOT DETECTED) ? NOTE: This test uses order picker-mediated amplification method to detect rRNA from N.Gonorrhoeae. [...] without risk of sexual abuse. Consult the [facility] if needed. Contact phone number . Therapeutic failure or success cannot be determined with the Aptima Combo2 assay since nucleic acid may persist following appropriate antimicrobial therapy. The Centers for Disease Control and Prevention (CDC) recommends confirmatory retesting using culture or a different nucleic acid amplification test when positive results occur, if indicated. Testing performed or reported by [facility], a Service of [facility], [facility] [place] [address] Altaf Guallpa MD, Sheet Metal Welder [facility]# [id number] Urine (Urine) 07/24/2021 11: 06 AM EDT 07/24/2021 6:51 PM EDT us Chantal Ferrari NP LAB MICROBIOLOGY - GENERAL ORDER MAKAYLA Final Result [facility] from Last 3 Months or Most Recently Relevant to Health Maintenance Care Teams Portable Track Crew Chief Relationship Specialty Start Date End Date Provider, MD Kristen [address] [place] [phone] PCP - General Pediatrics 06/04/22
== END ==
LOC: HO.CARD 08:59
DX: R00.2 Palpitations (principal)
CPT/HCPCS: 93242

== ENCOUNTER → 2024-08-11 09:01 | Outpatient (BNV) | payer OTHER, SELFPAY | PROVIDERS: Visit Provider Internal Medicine Cardiovascular Disease | DX: I49.3 Ventricular premature depolarization (principal) | CPT/HCPCS: 93244 ==

== ENCOUNTER 2024-09-04 13:05 | Outpatient (AMB) | payer OTHER, SELFPAY ==
--- NOTE | 2024-09-04 13:11 | A.OFFPC_ITS ---
Vital Signs 09/04/24 13:12 Height 5 ft 1 in Weight 115 lb 9.6 oz BMI 21.8 BP 106/56 L Blood Pressure Location Lt brachial Position Sitting Respiration 14 Pulse 96 Pulse Source Pulse Oximeter Temp 99.0 F Temp Source Oral Pulse Oximetry (%) 99 Oxygen Delivery Method Room Air Intake Visit Reasons: PE Coil Spring Assembler Required: No Accompanied by: Self / Same As Patient Allergies No Known Allergies Allergy (Verified 09/04/24 13:27) Medication List - Last Reconciled 09/04/24 by TROY Michel albuterol sulfate 90 mcg/actuation 2 puffs inhalation Q4-6H PRN Tobacco use date assessed: 09/04/24 Dental Screening Dental Screen Date: 09/04/24 Did you have a dental visit in the last 12 months?: Yes Did you have a dental problem in the last 6 months where you did not have access to dental care?: No Was dental information given to patient?: Patient has dentist HPI PE HPI Details The patient is presenting for annual physical Dentist: up to date Eye:up to date Snellen: Right: Left: Corrected vision: STI screening: Colonoscopy:n/a Pap Smer:up coming appt PHQ-9: Flu:not this year COVID: n/a Tdap: up to date Diet:eats 1-2 times a day Exercise: home exercises patches on her arms: ringworm appearing areas. 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 1. Little interest or pleasure in doing things: not at all 2. Feeling down, depressed, or hopeless: not at all 3. Trouble falling or staying asleep, or sleeping too much: nearly every day 4. Feeling tired or having little energy: nearly every day 5. Poor appetite or overeating: nearly every day 6. Feeling bad about yourself - or that you are a failure or have let yourself or your family down: not at all 7. Trouble concentrating on things, such as reading the newspaper or watching television: several days 8. Moving or speaking so slowly that other people could have noticed. Or the opposite - being so fidgety or restless that you have been moving around a lot more than usual: not at all 9. Thoughts that you would be better off or of hurting yourself in some way: not at all Total score: 10 Depression Screening Interpretation: Positive Depression Screening Done: Yes Source: Developed by Drs. Milo Almeida, Corrina Garcia, Manoj Aguayo and colleagues, with an educational damaris from [employer]. Thrive Questionnaire Date Thrive assessed: 09/04/24 I am a: Patient What is your living situation today?: I have a steady place to live Within the past 12 months, did the food you bought not last and you didn't have the money to get more?: I choose not to answer this question Within the past 12 months, did you worry whether your food would run out before you got money to buy more?: I choose not to answer this question Do you have trouble paying for medicines?: No Do you have trouble getting transportation to medical appointments?: No Do you have trouble paying your heating and electricity bill?: Yes Do you have trouble taking care of your child, family member or friend?: No Do you have trouble with day-to-day activities such as bathing, preparing meals, shopping, managing finances, etc.?: No Are you currently unemployed and looking for a job?: No Are you interested in more education?: I choose not to answer this question Please select the resources that you would like help with: Utilities Currently or been in a relationship where the following occur: No concerns reported THRIVE Score: 1 AUDIT C Alcohol Use Questionnaire (AUDIT-C) 1. How often do you have a drink containing alcohol?: Never 3. How often do you have six or more drinks on one occasion?: Never Total Score: 0 Score Reviewed/Action Taken: No SANDEEP-7 AMB Questionnaire SANDEEP-7 Date SANDEEP - 7 assessed: 09/04/24 Feeling nervous, anxious, or on edge: 2 = More than half the days Not being able to stop or control worryin = More than half the days Worrying too much about different things: 2 = More than half the days Trouble relaxin = Not at all Being so restless that it is hard to sit still: 0 = Not at all Becoming easily annoyed or irritable: 1 = Several days Feeling afraid as if something awful might happen: 0 = Not at all Total SANDEEP-7 score (0-4 normal; 5-9 mild; 10-14 moderate; 15-21 severe): 7 Source: Developed by Drs. Milo Almeida, Corrina Garcia, Manoj Aguayo and colleagues, with an educational damaris from [employer]. ACT Questionnaire In the past 4 weeks, how much of the time did your asthma keep you from getting as much done at work, school or at home?: None of the time During the past 4 weeks, how often have you had shortness of breath?: 1-2 times a week During the past 4 weeks, how often did your asthma symptoms wake you up at night or earlier than usual in the morning?: Not at all During the past 4 weeks, how often have you had to use your rescue inhaler or nebulizer medication?: Not at all How would you rate your asthma control during the past 4 weeks?: Completely controlled ACT Interpretation: Negative Score: 24 Review of Systems Const Denies headache(s) Eyes Denies loss of vision ENT Denies vertigo, Denies dizziness, Denies headache(s) and Denies sore throat Card Denies chest pain, Denies leg edema and Denies lightheadedness Resp Denies cough, Denies hemoptysis and Denies wheezing GI Denies abdominal pain, Denies melena, Denies constipation, Denies diarrhea and Denies vomiting Denies urinary frequency, Denies dysuria and Denies urinary urgency Musc Reports back pain (On and off), Denies arthralgias, Denies joint swelling, Denies numbness and Denies tingling Skin/Breast Reports rash (circular skin patches) and Reports sores (Recurrent cold sores) Neuro Denies Abnormal speech present, Denies behavioral changes, Denies vertigo, Denies dizziness, Denies headache(s), Denies loss of vision, Denies memory loss, Denies numbness and Denies tingling Psych Denies anxiety, Denies behavioral changes, Denies depression, Denies memory loss and Denies panic attacks Kwesi/Lymph Denies easy bleeding and Denies easy bruising Aller/Immun Denies wheezing Physical exam (Primary Care) Vital Signs: Last Vital Signs Temp 99.0 F 09/04/24 13:12 Pulse 96 09/04/24 13:12 Resp 14 09/04/24 13:12 BP 106/56 L 09/04/24 13:12 Pulse Ox 99 09/04/24 13:12 Oxygen Delivery Method Room Air 09/04/24 13:12 BMI result Body Mass Index 21.8 Tobacco/Smoking Status: Tobacco use Status Tobacco use date assessed 09/04/24 09/04/24 13:24 Patient Tobacco Use Status Never used Tobacco 09/04/24 13:24 e-Cigarette/Vaping Use Never Used 09/04/24 13:24 PHQ-9: PHQ-9 Score PHQ-9: Total score 10 09/08/24 05:23 Depression Screening Interpretation: Positive Thrive Assessment: Date of Thrive Assessment Date Thrive assessed 09/04/24 09/04/24 13:24 Currently or been in a relationship where the following occur: No concerns reported Const General: healthy appearing, no acute distress, alert and awake Nutritional Appearance: well nourished Orientation/consciousness: oriented to person, oriented to place and oriented to time HENMT Ears: TM's normal bilaterally General nose exam: Normal nasal mucous membranes and turbinates present Eyes Conjunctivae: conjunctivae normal Sclerae: sclerae normal Pupils: Equal, round and reactive pupils present Neck Neck: Yes no lymphadenopathy and Yes no JVD Thyroid: Thyroid normal Carotids: no bruits Resp Effort & Inspection: normal respiratory effort and not tachypneic Auscultation: no crackles, no rales, no rhonchi and no wheezes Cardio Rate: regular rate Rhythm: regular rhythm Heart sounds: no murmurs and normal S1 and S2 GI Palpation (GI): Soft to palpation, nontender, no hepatomegaly and no splenomegaly Auscultation: normal bowel sounds Skin General skin exam: dry skin Rashes: rashes noted (circular patches consistent with tinea) patches multiple locations Neuro General: oriented to person, oriented to place and oriented to time Cranial nerves: Yes Equal, round and reactive pupils present Speech: No Abnormal speech present Gait exam (Neuro): Normal gait present Extrem Right upper extremity: full ROM Left upper extremity: full ROM Right lower extremity: full ROM; no edema Left lower extremity: full ROM; no edema Psych Mental Status: mental status grossly normal Speech and movement: Normal speech and movement present Affect: normal affect Attitude: cooperative Thought process: Normal thought process present Results Reviewed Results Reviewed: Laboratory Tests 08/05/24 08/05/24 08:40 09:40 WBC 5.7 RBC 4.64 Hgb 13.8 Hct 39.9 MCV 86.0 MCH 29.7 RDW 11.9 Plt Count 194 Sodium 138 Potassium 4.0 Chloride 108 Carbon Dioxide 25 Anion Gap 9 L BUN 12 Creatinine 0.66 Estimated GFR > 60 Fasting Glucose 89 Calcium 9.3 Total Bilirubin 0.5 AST 22 ALT 21 Alkaline Phosphatase 52 Total Protein 7.9 Albumin 4.5 Triglycerides 37 Cholesterol 130 LDL Cholesterol, Calc 78 HDL Cholesterol 45 25-OH Vitamin D Total 33.3 TSH 0.98 Urine Color Yellow Urine Appearance Clear Urine pH 6.0 Ur Specific [place] 1.025 Urine Protein Negative Urine Glucose (UA) Negative Urine Ketones Negative Urine Blood Moderate (2+) H Urine Nitrite Negative Ur Leukocyte Esterase Negative Urine RBC 6-10 H Urine WBC 0-5 Ur Squamous Epith Cells 0-2 Urine Bacteria None Seen Hyaline Casts 0-2 Coding Level of Care Code Est Pt Prev Care 18-39y([id number]) Diagnoses Annual physical exam Z00.00 Recurrent cold sores B00.1 Tinea B35.9 Mild persistent asthma without complication J45.30 Asthma complication type: uncomplicated Asthma persistence: persistent Asthma severity: mild Juvenile idiopathic scoliosis of thoracolumbar region M41.115 Idiopathic scoliosis type: juvenile Scoliosis type: idiopathic Spinal region: thoracolumbar Heart palpitations R00.2 Women's annual routine gynecological examination Z01.419 Additional Codes Asthma Control Questionnaire - ACT Interpretation: Negative ([id number]) Time Spent (min) 36 Assessment & Plan Assessment & Plan (1) Annual physical exam: Code(s): Z00.00 - Encounter for general adult medical examination without abnormal findings Category: Medical Plan: Preventative guidelines recent labs reviewed with the patient. Patient is up-to-date on most screenings. Upcoming OBGyn appointment for Pap smear. 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 Category: Medical Plan: Valacyclovir 1 g q.12 x7 days ordered (3) Tinea: Code(s): B35.9 - Dermatophytosis, unspecified Category: Medical Plan: Terbinafine HCI 1% topical ordered (4) Asthma: Code(s): J45.909 - Unspecified asthma, uncomplicated Category: Medical Qualifiers: Asthma complication type: uncomplicated Asthma persistence: persistent Asthma severity: mild Qualified Code(s): J45.30 - Mild persistent asthma, uncomplicated Plan: Patient reports that infrequently she feels some heaviness in the chest that lasts for 2 to 3 minutes Reports she does have a history of asthma but has not used an inhaler in a long time Discussed with the patient that even though her asthma is mild she should have a rescue inhaler just in case Albuterol sulfate 90 mcg/actuation 2 puffs inhalation Q 4-6 hours p.r.n. ordered (5) Scoliosis: Code(s): M41.9 - Scoliosis, unspecified Category: Medical Qualifiers: Idiopathic scoliosis type: juvenile Scoliosis type: idiopathic Spinal region: thoracolumbar Qualified Code(s): M41.115 - Juvenile idiopathic scoliosis, thoracolumbar region Plan: The patient reports that she has mild scoliosis. Reports having intense back pain in the past that resolved Reports that she thinks it is related to poor posture. Back stretches was printed and given to patient. Discussed with the patient that if her condition worsens we could send her to PT to be evaluated (6) Heart palpitations: Code(s): R00.2 - Palpitations Category: Medical Plan: Patient completed Holter monitor but has not dropped off the monitor for evaluation as yet. She denies any recent palpitation. (7) Women's annual routine gynecological examination: Code(s): Z01.419 - Encounter for gynecological examination (general) (routine) without abnormal findings Category: Medical Plan: OBGYN referral placed on previous appointment and the patient has an upcoming appointment Medications: New terbinafine HCl 1% (Antifungal (terbinafine)) 1 appl topical DAILY 30 grams 0RF valacyclovir 1,000 mg PO Q12H 7 days 14 tabs 3RF
[2024-09-04 13:12] VITALS: BP 106/56; PULSE 96; RESP 14; TEMP 37.2; O2SAT 99; BMI 21.8
--- OUTSIDE RECORDS SUMMARY | 2024-09-04 13:27 | XMS_ITS | Clinical Summary ---
Author Organization [facility] Address [address] [place] [phone] Phone Care Team Providers Care Field Investigator Name Role Phone Unavailable Primary Care Provider Unavailabl e Allergies No known active allergies Medications ProAir [...] encompasses the whole body including the brain; [facility] clinician not available for warm hand off today; however, will ask Olivia Sebastian to follow up for intake;mom Tajik speaking only Assessment & Plan (07/30/2021 4:11 [...] encompasses the whole body including the brain; [facility] clinician not available for warm hand off today; however, will ask Olivia Sebastian to follow up for intake;mom Tajik speaking only BMI pediatric, 5th percentile to [...] Encounters Date Type Department Care Team Description 08/24/2024 Telephone [facility] [address] [place] [address] Isadora Conner MD Medical Records 07/07/2024 Telephone [facility] [address] [place] [address] Provider, MD Kristen Release of Information from [...] Completed 07/24/2021, 016 Procedures * Due to [employer] law, this organization might not be sharing sensitive test results. Procedure Name Priority Date/Time Associated Diagnosis Comments CHLAMYDIA AND GONORRHEA, AMPLIFIED Routine 07/24/2021 11:06 AM EDT Screening for chlamydial disease from Last 3 Months or Most Recently Relevant to Health Maintenance Results * Due to [employer] law, this organization might not be sharing sensitive test results. * Chlamydia and Gonorrhoea, Amplified (07/24/2021 11:06 AM EDT) Chlamydia Trachomatis, DNA Probe NEGATIVE (NEG) [facility] Comment: No Chlamydia Trachomatis RNA detected in this patient's sample ? (REFERENCE RANGE/NORMAL VALUE: NOT DETECTED) ? Note: This test uses document image technician- mediated amplification method to detect rRNA from C. Trachomatis URINE GC AMP PROBE NEGATIVE (NEG) [facility] Comment: No Neisseria Gonorrhoeae RNA detected in this patient's sample ? (REFERENCE RANGE/NORMAL VALUE: NOT DETECTED) ? NOTE: This test uses document image technician-mediated amplification method to detect rRNA from N.Gonorrhoeae. [...] without risk of sexual abuse. Consult the [facility] if needed. Contact phone number . Therapeutic failure or success cannot be determined with the Aptima Combo2 assay since nucleic acid may persist following appropriate antimicrobial therapy. The Centers for Disease Control and Prevention (CDC) recommends confirmatory retesting using culture or a different nucleic acid amplification test when positive results occur, if indicated. Testing performed or reported by [facility], a Service of [facility], [facility] Vivian Arias, [place] [address] Atlaf Guallpa MD, Flight Information Expediter NOEL# [id number] Urine (Urine) 07/24/2021 11: 06 AM EDT 07/24/2021 6:51 PM EDT Chantal Ferrari NP LAB MICROBIOLOGY - GENERAL ORDER MAKAYLA Final Result [facility] from Last 3 Months or Most Recently Relevant to Health Maintenance
--- OUTSIDE RECORDS SUMMARY | 2024-09-04 13:27 | XMS_ITS | Encounter Summary ---
Author Organization [facility] Address [address] [place] [address] Phone Care Team Providers Care Quill Winder Name Role Phone Provider, Kristen RANGEL Primary Care Provider [phone] Reason for Visit * Reason Comments Med Refill Encounter Details Date Type Department Care Team (Late st Contact Info) Description 12/15/2017 Refill [facility] [place] [address] [place] [address] Rani Chao NP [address] [facility] [address] [place] [address] Mild intermittent asthma without complication (Primary Dx) [...] Primary documented in this encounter Care Teams Quill Winder Relationship Specialty Start Date End Date Provider, MD Kristen [address] [place] [phone] PCP - General Pediatrics 06/04/22 08/23/24 documented as of this encounter
--- OUTSIDE RECORDS SUMMARY | 2024-09-04 13:27 | XMS_ITS | Encounter Summary ---
Author Organization [facility] Address [address] [place] [address] Phone Care Team Providers Care Bolt Sawyer Name Role Phone Provider, Kristen RANGEL Primary Care Provider [phone] Reason for Visit * Reason Onset Date Comments Med Refill Med Refill 10/31/2020 Encounter Details Date Type Department Care Team (Late st Contact Info) Description 10/22/2020 Refill [facility] [place] [address] [place] [address] Kadi Álvarez MD [address] [place] [address] Onychomycosis; Tinea pedis of both feet Social [...] feet documented in this encounter Care Teams Bolt Sawyer Relationship Specialty Start Date End Date Provider, MD Kristen [address] [place] [phone] PCP - General Pediatrics 06/04/22 08/23/24 documented as of this encounter
--- OUTSIDE RECORDS SUMMARY | 2024-09-04 13:27 | XMS_ITS | Encounter Summary ---
Author Organization [facility] Address [address] [place], [place] [id number] Phone Care Team Providers Care Silvering Department Supervisor Name Role Phone Provider, Kristen RANGEL Primary Care Provider [phone] Reason for Visit * Reason Comments Med Refill Encounter Details Date Type Department Care Team (Late st Contact Info) Description 05/27/2020 Refill [facility] [place] [address] [place] [address] Osmel Tucker MD [address] [place] [address] Mild intermittent asthma without complication Social History [...] complication documented in this encounter Care Teams Silvering Department Supervisor Relationship Specialty Start Date End Date Provider, MD Kristen [address] [place] [phone] PCP - General Pediatrics 06/04/22 08/23/24 documented as of this encounter
--- OUTSIDE RECORDS SUMMARY | 2024-09-04 13:27 | XMS_ITS | Encounter Summary ---
Author Organization [facility] Address [address] [place] [address] Phone Care Team Providers Care Fence Erector Name Role Phone Provider, Kristen RANGEL Primary Care Provider [phone] Encounter Details Date Type Department Care Team (Late st Contact Info) Description 07/21/2015 Documentation [facility] [place] Family Medicine [address] [place] [address] Family Medicine, Physician [address] [place], [place] [id number] Social History Tobacco Use Types Packs/Day Years [...] on filedocumented in this encounter Care Teams Fence Erector Relationship Specialty Start Date End Date Provider, MD Kristen [address] [place] [phone] PCP - General Pediatrics 06/04/22 08/23/24 documented as of this encounter
--- OUTSIDE RECORDS SUMMARY | 2024-09-04 13:27 | XMS_ITS | Encounter Summary ---
Author Organization [facility] Address [address] [place] [address] Phone Care Team Providers Care Injection Molding Process Technician Name Role Phone Provider, Kristen RANGEL Primary Care Provider [phone] Encounter Details Date Type Department Care Team (Late st Contact Info) Description 12/20/2016 Conversion Encounter [facility] - [address] [id number] Social History Tobacco Use Types Packs/Day Years [...] on filedocumented in this encounter Care Teams Injection Molding Process Technician Relationship Specialty Start Date End Date Provider, MD Kristen [address] [place] [phone] PCP - General Pediatrics 06/04/22 08/23/24 documented as of this encounter
--- OUTSIDE RECORDS SUMMARY | 2024-09-04 13:27 | XMS_ITS | Clinical Summary ---
Author Organization [facility] Address [address] [place] [address] Care Team Providers Care Branch Manager Name Role Phone Paradise Jain MD Primary [...] so, obtain the minor's consent prior to disclosure.[facility] Social History Tobacco Use Types Packs/Day [...] patient's age to complete this topic Insurance [facility] ([employer]) Care Teams Branch Manager Relationship Specialty Start Date End Date Paradise Jain MD [address] [place] [address] DAVID LEARY [phone] PCP - General General Pediatrics 02/10/21
--- OUTSIDE RECORDS SUMMARY | 2024-09-04 13:27 | XMS_ITS | Encounter Summary ---
Author Organization [facility] Address [address] [place] [address] Phone Care Team Providers Care Commutator Tester Name Role Phone Provider, Kristen RANGEL Primary Care Provider [phone] Encounter Details Date Type Department Care Team (Late st Contact Info) Description 08/10/2010 Documentation [facility] [place] [address] [place] [address] Family Medicine, Physician [address] [place], [place] [address] Social History Tobacco Use Types Packs/Day Years [...] on filedocumented in this encounter Care Teams Commutator Tester Relationship Specialty Start Date End Date Provider, MD Kristen [address] [place] [phone] PCP - General Pediatrics 06/04/22 08/23/24 documented as of this encounter
== END 2024-09-04 13:58 | disposition home or self-care (01) ==
LOC: HO.HMCH 13:06
DX: Z00.00 Encounter for general adult medical examination without abnormal findings (principal); B00.1 Herpesviral vesicular dermatitis; B35.9 Dermatophytosis, unspecified; J45.30 Mild persistent asthma, uncomplicated; M41.115 Juvenile idiopathic scoliosis, thoracolumbar region; R00.2 Palpitations; Z01.419 Encounter for gynecological examination (general) (routine) without abnormal findings

== ENCOUNTER → 2024-09-04 13:05 | Outpatient (BNVA) | payer OTHER, SELFPAY | DX: Z00.00 Encounter for general adult medical examination without abnormal findings (principal); B00.1 Herpesviral vesicular dermatitis; B35.9 Dermatophytosis, unspecified; J45.30 Mild persistent asthma, uncomplicated; M41.115 Juvenile idiopathic scoliosis, thoracolumbar region; R00.2 Palpitations | CPT/HCPCS: 96160; 99395 ==

== ENCOUNTER 2025-01-05 14:33 | Outpatient (AMB) | payer OTHER, SELFPAY ==
--- NOTE | 2025-01-05 14:38 | A.OFFPC_ITS ---
Vital Signs 3 01/05/25 14:39 Height 5 ft 1 in Weight 112 lb BMI 21.2 BP 130/66 Blood Pressure Location Lt brachial Position Sitting Respiration 12 Pulse 101 H Pulse Source Pulse Oximeter Temp 97.1 F Temp Source Temporal Artery Scan Pulse Oximetry (%) 97 Oxygen Delivery Method Room Air Intake Visit Reasons: discuss big lump in throat Intake Note: Patient is here to follow up on Lump in throat. Plate Maker Required: No Supervisor Dairy Sanitation: Not Required per policy Accompanied by: Self / Same As Patient Allergies No Known Allergies Allergy (Verified 01/05/25 23:20) Medication List - Last Reconciled 01/05/25 by TROY Michel albuterol sulfate 90 mcg/actuation 2 puffs inhalation Q4-6H PRN valacyclovir 1,000 mg PO Q12H 7 days Tobacco use date assessed: 01/05/25 Dental Screening Dental Screen Date: 09/04/24 HPI discuss big lump in throat 2 HPI0 Details The patient is a 19-year-old female presenting with difficulty swallowing and excessive facial hair growth. The patient reports experiencing difficulty swallowing for an unspecified duration, with no associated pain or sore throat. She describes the sensation as a general difficulty with swallowing both solids and liquids, including water. There have been no prior evaluations or treatments for this issue. The patient also reports the development of thick hair growth around her neck and sideburns, which she has not experienced before. She suspects a hormonal imbalance and has not been diagnosed with polycystic ovary syndrome (PCOS). The patient has not noticed any other symptoms typically associated with PCOS, such as significant weight gain or irregular menstruation. Additionally, the patient has a history of recurrent chalazion, occurring every six months for the past three to four years. She has undergone surgical interventions and steroid injections, but the condition persists. The patient is seeking a referral to a different dipping machine operator for further evaluation. 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 Cognitive needs: No Hearing needs: No Vision needs: No Female Reproductive History Menstrual Age of Menarche: 9 Questionnaire Thrive Questionnaire Date Thrive assessed: 07/24/24 I am a: Patient What is your living situation today?: I have a steady place to live Within the past 12 months, did the food you bought not last and you didn't have the money to get more?: I choose not to answer this question Within the past 12 months, did you worry whether your food would run out before you got money to buy more?: I choose not to answer this question Do you have trouble paying for medicines?: No Do you have trouble getting transportation to medical appointments?: No Do you have trouble paying your heating and electricity bill?: Yes Do you have trouble taking care of your child, family member or friend?: No Do you have trouble with day-to-day activities such as bathing, preparing meals, shopping, managing finances, etc.?: No Are you currently unemployed and looking for a job?: No Are you interested in more education?: I choose not to answer this question Please select the resources that you would like help with: Utilities Currently or been in a relationship where the following occur: No concerns reported THRIVE Score: 1 SANDEEP-7 AMB Questionnaire SANDEEP-7 Date SANDEEP - 7 assessed: 09/04/24 Source: Developed by Drs. Milo Almeida, Corrina Garcia, Manoj Aguayo and colleagues, with an educational damaris from [employer]. Review of Systems Const Denies chills, Denies fatigue, Denies fever(s), Denies headache(s), Denies malaise and Denies weakness Eyes Denies blurry vision, Denies change in vision, Denies irritation, Denies itchy eyes and Reports other (recurrent stye on the left upper eyelid) ENT Reports dysphagia, Denies dizziness, Denies otalgia, Denies headache(s), Denies nasal congestion, Denies neck pain, Denies odynophagia and Denies sore throat Card Denies rapid heart rate, Denies irregular heart rhythm, Denies palpitations and Denies dyspnea Resp Denies chest congestion, Denies cough, Denies dyspnea and Denies wheezing GI Denies abdominal pain, Denies bloating, Denies constipation, Reports dysphagia, Denies heartburn, Denies diarrhea, Denies nausea, Denies odynophagia and Denies vomiting Denies hematuria, Denies urinary frequency, Denies dysuria and Denies urinary urgency Musc Denies back pain, Denies arthralgias, Denies joint swelling, Denies muscle weakness and Denies neck pain Skin/Breast Denies change in pigmentation, Denies lesions, Denies rash, Denies unusual bruising and Reports other (thick growth of hair underneath chin) Neuro Denies dizziness, Denies headache(s), Denies paresthesias and Denies weakness Endo Denies fatigue, Denies palpitations and Reports other (facial hair growth) Aller/Immun Denies itchy eyes and Denies wheezing Physical exam (Primary Care) Vital Signs: Last Vital Signs Temp 97.1 F 01/05/25 14:39 Pulse 101 H 01/05/25 14:39 BP 130/66 01/05/25 14:39 Pulse Ox 97 01/05/25 14:39 Oxygen Delivery Method Room Air 01/05/25 14:39 BMI result Body Mass Index 21.2 Tobacco/Smoking Status: Tobacco use Status Tobacco use date assessed 01/05/25 01/05/25 14:43 Patient Tobacco Use Status Never used Tobacco 01/05/25 14:43 e-Cigarette/Vaping Use Never Used 01/05/25 14:43 Thrive Assessment: Date of Thrive Assessment Date Thrive assessed 07/24/24 01/05/25 14:43 Currently or been in a relationship where the following occur: No concerns reported Const General: cooperative, healthy appearing, comfortable and no acute distress Orientation/consciousness: patient oriented x3 HENMT Head: Yes normocephalic Ears: hearing grossly normal bilaterally General nose exam: Normal external nose present Eyes Eyelids: Yes eyelid abnormality (left upper eye stye) Conjunctivae: conjunctivae normal Pupils: Equal, round and reactive pupils present Eyes/upper lids images: 2 1. left upper eyelid hordeolum Neck Neck: Yes full ROM and Yes no lymphadenopathy Thyroid: Thyroid normal Resp Effort & Inspection: normal respiratory effort Auscultation: clear to auscultation bilaterally, no crackles, no rales, no rhonchi and no wheezes Cardio Rate: regular rate Rhythm: regular rhythm Skin General skin exam: other (hirsutism) Neuro General: patient oriented x3 Cranial nerves: Yes Equal, round and reactive pupils present Gait exam (Neuro): Normal gait present Extrem General: Yes normal to inspection, Yes full ROM and No edema Psych Affect: normal affect Attitude: cooperative Insight: Good insight present (Psych) Judgement: Good judgement present (Psych) Coding Level of Care Code Est Pt Level 3 (74327) Diagnoses Female hirsutism L68.0 Dysphagia, unspecified type R13.10 Dysphagia type: unspecified Chalazion left lower eyelid H00.15 Time Spent (min) 37 Assessment & Plan Assessment & Plan (1) Female hirsutism: Code(s): L68.0 - Hirsutism Category: Medical (2) Dysphagia: Code(s): R13.10 - Dysphagia, unspecified Category: Medical Qualifiers: Dysphagia type: unspecified Qualified Code(s): R13.10 - Dysphagia, unspecified (3) Chalazion left lower eyelid: Code(s): H00.15 - Chalazion left lower eyelid Category: Medical Plan Plan Patient was informed and verbally consented to the use of an ambient scribe for clinic note documentation during this visit. 1. Dysphagia The patient will undergo a barium swallow evaluation to assess the cause of dysphagia. Referral to an sas developer is planned to evaluate potential hormonal imbalances contributing to the symptoms. 2. Hirsutism The patient is referred to endocrinology for further evaluation of potential hormonal imbalances causing hirsutism. Further laboratory workup will be considered to assess hormonal levels. 3. Chalazion The patient seeks a referral to a different dipping machine operator for a second opinion on recurrent chalazion management. Current management includes steroid injections and surgical interventions, but recurrence persists. Orders: Orders 2 DHEA Sulfate Today L68.0 - Hirsutism Prolactin Today L68.0 - Hirsutism Hemoglobin A1c Today L68.0 - Hirsutism Comprehensive Met. Panel Today L68.0 - Hirsutism FL barium swallow Today R13.10 - Dysphagia, unspecified Testosterone, Free/Total Today L68.0 - Hirsutism TSH reflex Free T4 Today L68.0 - Hirsutism Lutenizing Hormone Today L68.0 - Hirsutism Follicle Stimulating Hormone Today L68.0 - Hirsutism Referrals 2 Endocrinology Referral L68.0 - Hirsutism
[2025-01-05 14:39] VITALS: BP 130/66; PULSE 101; RESP 12; TEMP 36.2; O2SAT 97; BMI 21.2
--- OUTSIDE RECORDS SUMMARY | 2025-01-05 15:44 | XMS_ITS | Clinical Summary ---
Author Organization [facility] Address [address] [place] [phone] Phone Care Team Providers Care Flexographic Press Operator Name Role Phone Unavailable Primary Care Provider [...] encompasses the whole body including the brain; [facility] clinician not available for warm hand off today; however, will ask Olivia Sebastian to follow up for intake;mom Citizen Of [place] speaking only Assessment & Plan (07/30/2021 4:11 [...] encompasses the whole body including the brain; [employer] clinician not available for warm hand off today; however, will ask Olivia Sebastian to follow up for intake;mom Citizen [place] speaking only BMI pediatric, 5th percentile to [...] EST): Great toe: referred to Derm clinic Immunizations Immunization Administration Dates Next Due DTaP [...] 118 10/30/2021 4:41 PM EDT Temperature 36.4 C (97.6 F) 10/30/2021 4:41 PM EDT Respiratory Rate - - Oxygen Saturation 97% 10/30/2021 4:41 PM EDT Inhaled Oxygen Concentration - - Weight 49.9 kg (110 lb) 10/30/2021 4:41 PM EDT Height 153.9 cm (5' 0.6 ) 07/24/2021 9:38 AM EDT Body Mass Index - - Plan of Treatment Health Maintenance Due Date Last Done Comments Men B Vaccine (1 of 2 - Standard) 2019 Influenza Vaccines (#1) 2024 02/14/20 20, 02/25/2019, 04/21/2018, Additional history exists COVID-19 Vaccine (1 - 2023-2 5 season) 2025 DTaP,Tdap,and Td Vaccines (7 - Td or [...] Completed 07/24/2021, 016 Procedures * Due to [place] idio law, this organization might not be sharing sensitive test results. Procedure Name Priority Date/Time Associated Diagnosis Comments CHLAMYDIA AND GONORRHEA, AMPLIFIED Routine 07/24/2021 11:06 AM EDT Screening for chlamydial disease from Last 3 Months or Most Recently Relevant to Health Maintenance Results * Due to [facility] law, this organization might not be sharing sensitive test results. * Chlamydia and Gonorrhoea, Amplified (07/24/2021 11:06 AM EDT) Chlamydia Trachomatis, DNA Probe NEGATIVE (NEG) [facility] Comment: No Chlamydia Trachomatis RNA detected in this patient's sample (REFERENCE RANGE/NORMAL VALUE: NOT DETECTED) Note: This test uses christmas bell ringer- mediated amplification method to detect rRNA from C. Trachomatis URINE GC AMP PROBE NEGATIVE (NEG) [facility] Comment: No Neisseria Gonorrhoeae RNA detected in this patient's sample (REFERENCE RANGE/NORMAL VALUE: NOT DETECTED) NOTE: This test uses christmas bell ringer-mediated amplification method to detect rRNA from N.Gonorrhoeae. [...] without risk of sexual abuse. Consult the [facility] if needed. Contact phone number . Therapeutic failure or success cannot be determined with the Aptima Combo2 assay since nucleic acid may persist following appropriate antimicrobial therapy. The Centers for Disease Control and Prevention (CDC) recommends confirmatory retesting using culture or a different nucleic acid amplification test when positive results occur, if indicated. Testing performed or reported by [facility], a Service of [facility], [address] [place] [address] Altaf Guallpa MD, Reading Teacher [facility]# [id number] Urine (Urine) 07/24/2021 11: 06 AM EDT 07/24/2021 6:51 PM EDT us Chantal Ferrari NP LAB MICROBIOLOGY - GENERAL ORDER MAKAYLA Final Result [facility] from Last 3 Months or Most Recently Relevant to Health Maintenance
--- OUTSIDE RECORDS SUMMARY | 2025-01-05 15:44 | XMS_ITS | Encounter Summary ---
Author Organization [facility] Address [address] [place] [address] Phone Care Team Providers Care Autotransfusionist Name Role Phone Provider, Kristen RANGEL Primary Care Provider [phone] Encounter Details Date Type Department Care Team (Late st Contact Info) Description 07/21/2015 Documentation [facility] [place] Family Medicine [address] [place] [address] Family Medicine, Physician [address] [place], [place] [id number] Social History Tobacco Use Types Packs/Day Years [...] on filedocumented in this encounter Care Teams Autotransfusionist Relationship Specialty Start Date End Date Provider, MD Kristen [address] [place] [address] PCP - General Pediatrics 06/04/22 08/23/24 documented as of this encounter
--- OUTSIDE RECORDS SUMMARY | 2025-01-05 15:44 | XMS_ITS | Encounter Summary ---
Author Organization [facility] Address [address] [place] [address] Phone Care Team Providers Care Hose Maker Name Role Phone Provider, Kristen RANGEL Primary Care Provider [phone] Encounter Details Date Type Department Care Team (Late st Contact Info) Description 08/10/2010 Documentation [facility] [place] Family Medicine [address] [place] [address] Family Medicine, Physician [address] [place], [place] [phone] Social History Tobacco Use Types Packs/Day Years [...] on filedocumented in this encounter Care Teams Hose Maker Relationship Specialty Start Date End Date Provider, MD Kristen [address] [place] [address] PCP - General Pediatrics 06/04/22 08/23/24 documented as of this encounter
--- OUTSIDE RECORDS SUMMARY | 2025-01-05 15:44 | XMS_ITS | Encounter Summary ---
Author Organization [facility] Address [address] [place] [phone] Phone Care Team Providers Care Mowing Machine Operator Name Role Phone Provider, Kristen RANGEL Primary Care Provider [phone] Reason for Visit * Reason Comments Med Refill Encounter Details Date Type Department Care Team (Late st Contact Info) Description 12/15/2017 Refill [facility] [place] [address] [place] [address] Rani Chao NP [address] [facility] [address] [place] [address] Mild intermittent asthma without complication (Primary Dx) [...] Primary documented in this encounter Care Teams Mowing Machine Operator Relationship Specialty Start Date End Date Provider, MD Kristen [address] [place] [address] PCP - General Pediatrics 06/04/22 08/23/24 documented as of this encounter
--- OUTSIDE RECORDS SUMMARY | 2025-01-05 15:44 | XMS_ITS | Encounter Summary ---
Author Organization [facility] Address [address] [place] [address] Phone Care Team Providers Care Research Statistician Name Role Phone Provider, Kristen RANGEL Primary Care Provider [phone] Reason for Visit * Reason Onset Date Comments Med Refill Med Refill 10/31/2020 Encounter Details Date Type Department Care Team (Late st Contact Info) Description 10/22/2020 Refill [facility] [place] [address] [place] [address] Kadi Álvarez MD [address] [place] [address] Onychomycosis; Tinea pedis of both feet Social [...] feet documented in this encounter Care Teams Research Statistician Relationship Specialty Start Date End Date Provider, MD Kristen [address] [place] [phone] PCP - General Pediatrics 06/04/22 08/23/24 documented as of this encounter
--- OUTSIDE RECORDS SUMMARY | 2025-01-05 15:44 | XMS_ITS | Encounter Summary ---
Author Organization [facility] Address [address] [place] [address] Phone Care Team Providers Care Surgeon Partner Name Role Phone Provider, Kristen RANGEL Primary Care Provider [phone] Encounter Details Date Type Department Care Team (Late st Contact Info) Description 12/20/2016 Conversion Encounter [facility] - [address] [id number] Social History Tobacco Use Types Packs/Day Years [...] on filedocumented in this encounter Care Teams Surgeon Partner Relationship Specialty Start Date End Date Provider, MD Kristen [address] [place] [address] PCP - General Pediatrics 06/04/22 08/23/24 documented as of this encounter
--- OUTSIDE RECORDS SUMMARY | 2025-01-05 15:44 | XMS_ITS | Encounter Summary ---
Author Organization [facility] Address [address] [place], [place] [phone] Phone Care Team Providers Care Lump Maker Name Role Phone Provider, Kristen RANGEL Primary Care Provider [phone] Reason for Visit * Reason Comments Med Refill Encounter Details Date Type Department Care Team (Late st Contact Info) Description 05/27/2020 Refill [facility] [place] [address] [place] [address] Osmel Tucker MD [address] [place] [address] Mild intermittent asthma without complication Social History [...] complication documented in this encounter Care Teams Lump Maker Relationship Specialty Start Date End Date Provider, MD Kristen [address] [place] [phone] PCP - General Pediatrics 06/04/22 08/23/24 documented as of this encounter
== END 2025-01-05 15:19 | disposition home or self-care (01) ==
LOC: HO.HMCH 14:33
DX: L68.0 Hirsutism (principal); R13.10 Dysphagia, unspecified; H00.15 Chalazion left lower eyelid

== ENCOUNTER → 2025-01-05 14:33 | Outpatient (BNVA) | payer OTHER, SELFPAY | DX: H00.15 Chalazion left lower eyelid (principal); L68.0 Hirsutism; R13.10 Dysphagia, unspecified | CPT/HCPCS: 99212 ==

== ENCOUNTER 2025-04-06 11:49 | Outpatient (AMB) | payer OTHER, SELFPAY ==
[2025-04-06 11:51] VITALS: BP 104/66; BMI 21.5
--- NOTE | 2025-04-06 11:51 | A.OFFVIS_ITS ---
Vital Signs 04/06/25 11:51 Height 5 ft 1 in Weight 114 lb BMI 21.5 BP 104/66 Blood Pressure Location Lt brachial Position Sitting Intake Visit Reasons: annual/ do not r/s cancel twice Allergies No Known Allergies Allergy (Verified 04/06/25 11:53) Is last menstrual period known: Yes Last menstrual period: 03/20/25 HPI Comments Details: Patient is a premenopausal woman presenting for annual examination. Photographic Colorist concerns: none. Regular monthly menses x7d, one cycle this February w/closely spaced cycles. Currently is sexually active. She denies vaginal itching or irritation. STI screening offered; she accepts, declines blood work. Does not have a healthy and stays active with exercise while working fast foods. First pelvic exam. 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 [employer] Cognitive needs: No Hearing needs: No Vision needs: No Female Reproductive History Menstrual Age of Menarche: 9 Duration of menses: 3-5 days Date of last menstrual period: 03/20/25 control method: none Total pregnancies: 0 Review of Systems Const All systems reviewed & are unremarkable except as noted in HPI and below Reports as per HPI Eyes Reports no additional complaints ENT Reports no additional complaints Card Reports no additional complaints Resp Reports no additional complaints GI Reports as per HPI and Reports no additional complaints Reports as per HPI Musc Reports no additional complaints Skin/Breast Reports as per HPI Neuro Reports no additional complaints Psych Reports no additional complaints Endo Reports no additional complaints Kwesi/Lymph Reports no additional complaints Aller/Immun Reports no additional complaints Physical Exam Vital Signs: Last Vital Signs BP 104/66 04/06/25 11:51 BMI result Body Mass Index 21.5 Const General: cooperative, healthy appearing, no acute distress, well developed and alert Orientation/consciousness: patient oriented x3 HEENT Head: Yes normal to inspection Eyes General: appearance normal, both eyes and all related structures Neck Neck: Yes normal visual inspection Thyroid: Thyroid normal Chest Chest palpation & inspection: normal inspection of the chest and other (no puckering, dimpling, peau de orange, retraction, discharge, masses) Breast/axilla inspection: normal inspection of the breasts Breast/axilla palpation: normal palpation of the breasts Resp Effort & Inspection: normal respiratory effort GI Inspection: Yes normal to inspection Palpation (GI): Soft to palpation Rectal Exam - Female: deferred General: Yes bladder normal to palpation External Female Exam: normal external appearance and normal appearance of the urethra Speculum Exam - Vagina: normal appearance of the vagina, normal palpation and normal vaginal discharge Speculum Exam - Cervix: normal appearance of the cervix and normal palpation Bimanual exam- vagina & uterus: normal bimanual exam, normal palpation, uterine size normal, bladder normal to palpation, normal palpation and non-tender Bimanual Exam- Adnexa, other: no masses Skin General skin exam: no rashes or lesions noted Rashes: no rashes Neuro General: patient oriented x3 Cognition (Neuro): normal cognition Extrem General: Yes normal to inspection Psych Attitude: cooperative Thought process: Normal thought process present Assessment & Plan Assessment & Plan (1) Women's annual routine gynecological examination: Code(s): Z01.419 - Encounter for gynecological examination (general) (routine) without abnormal findings Category: Medical Plan: Discussed: Current recommendations for pap smears per ASCCP guidelines. Pap obtained today. GC chlamydia and BV panel obtained. Breast awareness and periodic breast exams. Maintain a healthy lifestyle including a well balanced diet and routine exercise. Mediterranean diet handout provided. Use condoms for STI and prevention. Patient verbalizes understanding and agrees to the plan of care. She was given opportunity to ask questions and all questions were answered to the best of my ability. RTO in one year for annual getter operator examination. Plan Discussed: Current recommendations for pap smears per ASCCP guidelines. Pap obtained. GC chlamydia BV panel obtained. Declines bled work for STI screening. Overview of contraceptive options available with the use of CDC efficacy guidelines. Booklets on Mirena, Kyleena, and general control options provided. The patient expressed understanding and agreement with the plan of c are. All of her questions and concerns were addressed to the best of my ability. This note is constructed using voice recognition software. While every effort has been made to ensure accuracy, condenser setter errors may have been included. Orders: Orders CT NG by PCR Vag/Cerv Today Z01.419 - Encounter for gynecological examination (general) (routine) without abnormal findings Bacterial Vaginosis Panel Today Z01.419 - Encounter for gynecological examination (general) (routine) without abnormal findings Pap Smear Today Z01.419 - Encounter for gynecological examination (general) (routine) without abnormal findings Coding Level of Care Code New Pt Prev Care 18-39yr([id number] Diagnoses Women's annual routine gynecological examination Z01.419
--- OUTSIDE RECORDS SUMMARY | 2025-04-06 14:02 | XMS_ITS | Encounter Summary ---
Author Organization [facility] Address [address] [place], [place] [id number] Phone Care Team Providers Care Hooking Machine Operator Name Role Phone Provider, Kristen RANGEL Primary Care Provider [phone] Reason for Visit * Reason Comments Med Refill Encounter Details Date Type Department Care Team (Late st Contact Info) Description 05/27/2020 Refill [facility] [place] [address] [place] [address] Osmel Tucker MD 150 [place] [address] Mild intermittent asthma without complication Social History [...] complication documented in this encounter Care Teams Hooking Machine Operator Relationship Specialty Start Date End Date Provider, MD Kristen [address] [place] [phone] PCP - General Pediatrics 06/04/22 08/23/24 documented as of this encounter
--- OUTSIDE RECORDS SUMMARY | 2025-04-06 14:02 | XMS_ITS | Clinical Summary ---
Author Organization [facility] Address [address] [place] [address] Care Team Providers Care Central Service Technician Name Role Phone Paradise Jain MD Primary [...] so, obtain the minor's consent prior to disclosure.[facility] Social History Tobacco Use Types Packs/Day [...] SCREENING 11/16/2016 COVID-19 Vaccine (2023-2 5 season) 2025 INFLUENZA (#1) 2025 NIRSEVIMAB VACCINES UNDER 8 MONTHS Aged Out No longer eligible based on patient's age to complete this topic Insurance [employer] ([employer]) Care Teams Central Service Technician Relationship Specialty Start Date End Date Paradise Jain MD [address] [place] [address] DAVID LEARY [phone] PCP - General General Pediatrics 02/10/21
--- OUTSIDE RECORDS SUMMARY | 2025-04-06 14:02 | XMS_ITS | Clinical Summary ---
Author Organization [facility] Address [address] [place] [phone] Phone Care Team Providers Care Network Engineering Advisor Name Role Phone Unavailable Primary Care Provider [...] encompasses the whole body including the brain; [facility] clinician not available for warm hand off today; however, will ask Olivia Sebastian to follow up for intake;mom Nigerien speaking only Assessment & Plan (07/30/2021 4:11 [...] encompasses the whole body including the brain; [facility] clinician not available for warm hand off today; however, will ask Olivia Sebastian to follow up for intake;mom Nigerien speaking only BMI pediatric, 5th percentile to [...] Additional history exists COVID-19 Vaccine (1 - 2024-2 6 season) 2025 DTaP,Tdap,and Td Vaccines (7 - [...] Completed 07/24/2021, 016 Procedures * Due to [employer] law, this organization might not be sharing sensitive test results. Procedure Name Priority Date/Time Associated Diagnosis Comments CHLAMYDIA AND GONORRHEA, AMPLIFIED Routine 07/24/2021 11:06 AM EDT Screening for chlamydial disease from Last 3 Months or Most Recently Relevant to Health Maintenance Results * Due to [facility] [employer] [employer] law, this organization might not be sharing sensitive test results. * Chlamydia and Gonorrhoea, Amplified (07/24/2021 11:06 AM EDT) Chlamydia Trachomatis, DNA Probe NEGATIVE (NEG) [facility] Comment: No Chlamydia Trachomatis RNA detected in this patient's sample (REFERENCE RANGE/NORMAL VALUE: NOT DETECTED) Note: This test uses station chief- mediated amplification method to detect rRNA from C. Trachomatis URINE GC AMP PROBE NEGATIVE (NEG) [facility] Comment: No Neisseria Gonorrhoeae RNA detected in this patient's sample (REFERENCE RANGE/NORMAL VALUE: NOT DETECTED) NOTE: This test uses station chief-mediated amplification method to detect rRNA from N.Gonorrhoeae. [...] without risk of sexual abuse. Consult the [facility] if needed. Contact phone number . Therapeutic failure or success cannot be determined with the Aptima Combo2 assay since nucleic acid may persist following appropriate antimicrobial therapy. The Centers for Disease Control and Prevention (CDC) recommends confirmatory retesting using culture or a different nucleic acid amplification test when positive results occur, if indicated. Testing performed or reported by [facility], a Service of [facility], [address] [facility] [place] [address] Altaf Guallpa MD, Bail Agent [facility]# [id number] Urine (Urine) 07/24/2021 11: 06 AM EDT 07/24/2021 6:51 PM EDT us Chantal Ferrari NP LAB MICROBIOLOGY - GENERAL ORDER MAKAYLA Final Result [facility] from Last 3 Months or Most Recently Relevant to Health Maintenance
--- OUTSIDE RECORDS SUMMARY | 2025-04-06 14:02 | XMS_ITS | Encounter Summary ---
Author Organization [facility] Address [address] [place] [address] Phone Care Team Providers Care Behavior Support Specialist Name Role Phone Provider, Kristen RANGEL Primary Care Provider [phone] Reason for Visit * Reason Onset Date Comments Med Refill Med Refill 10/31/2020 Encounter Details Date Type Department Care Team (Late st Contact Info) Description 10/22/2020 Refill [facility] [place] [address] [place] [address] Kadi Álvarez MD [address] [place] [address] Onychomycosis; Tinea pedis of both feet Social [...] feet documented in this encounter Care Teams Behavior Support Specialist Relationship Specialty Start Date End Date Provider, MD Kristen [address] [place] [phone] PCP - General Pediatrics 06/04/22 08/23/24 documented as of this encounter
--- OUTSIDE RECORDS SUMMARY | 2025-04-06 14:02 | XMS_ITS | Encounter Summary ---
Author Organization [facility] Address [address] [place] [address] Phone Care Team Providers Care Enrollment Processor Name Role Phone Provider, Kristen RANGEL Primary Care Provider [phone] Reason for Visit * Reason Comments Med Refill Encounter Details Date Type Department Care Team (Late st Contact Info) Description 12/15/2017 Refill [facility] [place] [address] [place] [address] Rani Chao NP 299 [facility] [address] [place] [address] Mild intermittent asthma without complication (Primary Dx) [...] Primary documented in this encounter Care Teams Enrollment Processor Relationship Specialty Start Date End Date Provider, MD Kristen [address] [place] [phone] PCP - General Pediatrics 06/04/22 08/23/24 documented as of this encounter
--- OUTSIDE RECORDS SUMMARY | 2025-04-06 14:02 | XMS_ITS | Encounter Summary ---
Author Organization [facility] Address [address] [place] [address] Phone Care Team Providers Care Health Services Director Name Role Phone Provider, Kristen RANGEL Primary Care Provider [phone] Encounter Details Date Type Department Care Team (Late st Contact Info) Description 08/10/2010 Documentation [facility] [place] Family Medicine [address] [place] [address] Family Medicine, Physician [address] [place], [place] [address] Social History Tobacco Use Types Packs/Day Years [...] on filedocumented in this encounter Care Teams Health Services Director Relationship Specialty Start Date End Date Provider, MD Kristen [address] [place] [phone] PCP - General Pediatrics 06/04/22 08/23/24 documented as of this encounter
--- OUTSIDE RECORDS SUMMARY | 2025-04-06 14:02 | XMS_ITS | Encounter Summary ---
Author Organization [facility] Address [address] [place] [address] Phone Care Team Providers Care Powder Blender And Pourer Name Role Phone Provider, Kristen RANGEL Primary Care Provider [phone] Encounter Details Date Type Department Care Team (Late st Contact Info) Description 12/20/2016 Conversion Encounter [facility] - [address] [phone] Social History Tobacco Use Types Packs/Day Years [...] on filedocumented in this encounter Care Teams Powder Blender And Pourer Relationship Specialty Start Date End Date Provider, MD Kristen [address] [place] [phone] PCP - General Pediatrics 06/04/22 08/23/24 documented as of this encounter
--- OUTSIDE RECORDS SUMMARY | 2025-04-06 14:02 | XMS_ITS | Encounter Summary ---
Author Organization [facility] Address [address] [place] [address] Phone Care Team Providers Care Video Tape Editor Name Role Phone Provider, Kristen RANGEL Primary Care Provider [phone] Encounter Details Date Type Department Care Team (Late st Contact Info) Description 07/21/2015 Documentation [facility] [place] [address] [place] [address] Family Medicine, Physician [address] [place], [place] [address] Social History Tobacco Use Types Packs/Day Years [...] on filedocumented in this encounter Care Teams Video Tape Editor Relationship Specialty Start Date End Date Provider, MD Kristen [address] [place] [phone] PCP - General Pediatrics 06/04/22 08/23/24 documented as of this encounter
== END 2025-04-06 13:53 | disposition home or self-care (01) ==
LOC: HO.HWS 11:50
PROVIDERS: Visit Provider Advanced Practice Midwife
DX: Z01.419 Encounter for gynecological examination (general) (routine) without abnormal findings (principal)
CPT/HCPCS: 99385; 99459

== ENCOUNTER 2025-04-06 11:49 | Outpatient (REF) | payer OTHER, SELFPAY ==
[2025-04-06 15:52] LABS: Bacterial Vaginosis PCR NEGATIVE (Negative); Candida Group PCR NOT DETECTED (Not Detect); Candida glab krusei PCR NOT DETECTED (Not Detect); Trichomonas vaginalis PCR NOT DETECTED (Not Detect)
[2025-04-06 16:21] LABS: CT PCR NOT DETECTED (Not Detect.); NG PCR NOT DETECTED (Not Detect.)
== END 2025-04-06 11:50 | disposition home or self-care (01) ==
LOC: HO.LNP 11:49
PROVIDERS: Visit Provider Advanced Practice Midwife
DX: Z01.419 Encounter for gynecological examination (general) (routine) without abnormal findings (principal); Z20.2 Contact with and (suspected) exposure to infections with a predominantly sexual mode of transmission
CPT/HCPCS: 81515; 87491; 87591; 88175

== ENCOUNTER 2025-04-06 13:14 | Outpatient (REF) | payer OTHER, SELFPAY ==
[2025-04-06 14:40] LABS: Appearance Urine Clear; Glucose Urine UA Negative (Negative); PH 6.5 (5.0-9.0); Specific Gravity - Urine >= 1.030 (1.005-1.025); UMIC TRIGGER UACC YES
[2025-04-06 14:42] LABS: Alanine Aminotransferase 18 U/L (0-31); Albumin Level 4.7 g/dL (3.5-5.0); Alkaline Phosphatase 54 U/L (39-117); Anion Gap 13 (12-20); Aspartate Amino Transferase 22 U/L (5-31); Blood Urea Nitrogen 8 mg/dL (9-16); Calcium 9.3 mg/dL (8.4-10.2); Carbon Dioxide 25 mmol/L (22-29); Chloride 107 mmol/L (96-108); Estimated Glomerular Filt Rate > 60; Potassium 3.5 mmol/L (3.3-5.1); Sodium 141 mmol/L (135-145); Total Protein 7.7 g/dL (6.5-8.0)
[2025-04-07 07:19] LABS: Follicle Stimulating Hormone 3.9 mIU/mL
[2025-04-11 15:58] LABS: Testosterone, Free 2.9 pg/mL (0.1-6.4)
== END 2025-04-06 13:15 | disposition home or self-care (01) ==
LOC: HO.LAB 13:14
DX: Z00.00 Encounter for general adult medical examination without abnormal findings (principal); Z01.419 Encounter for gynecological examination (general) (routine) without abnormal findings; L68.0 Hirsutism
CPT/HCPCS: 36415; 80053; 81001; 82627; 83001; 83002; 83036; 84146; 84402; 84403; 84443

== ENCOUNTER 2025-04-27 12:41 | Outpatient (AMB) | payer OTHER, SELFPAY ==
--- NOTE | 2025-04-27 12:44 | A.OFFVIS_ITS ---
Vital Signs 04/27/25 12:45 Height 5 ft 1 in Weight 112 lb 6.972 oz BMI 21.2 BP 96/58 L Blood Pressure Location Rt brachial Position Sitting Pulse 82 Pulse Source Pulse Oximeter Pulse Oximetry (%) 96 Oxygen Delivery Method Room Air Intake Visit Reasons: Hirsutism Intake Note: NEW Patient presents today to establish care for Hirsutism: No acute complaints reported at this time. Propellant Assembler Required: No Accompanied by: Self / Same As Patient Allergies No Known Allergies Allergy (Verified 04/27/25 12:45) HPI Comments Details: 19 years old female with past medical history of dysphagia, scoliosis, asthma, seen in the office for evaluation of hirsutism. - Presents for evaluation of excessive facial hair growth, specifically in the sideburn and mandibular angle regions, which has been ongoing for approximately four to five months. The hair is described as thicker and longer than normal. There is concern for a possible underlying diagnosis such as Polycystic Ovary Syndrome (PCOS). - The hair growth was first noticed while looking in a mirror. It is localized to the sideburns and the angle of the mandible, without involvement of the upper lip or chin. There is no associated acne or other changes in secondary sexual characteristics. Menarche occurred at age 9. Menstrual cycles were initially regular but have become irregular in recent years, with cycle lengths varying between 28 to 32 days but remaining regular in their pattern. There is no family history of PCOS or excessive facial hair in female relatives. Weight has been stable. - No current medications reported. - No known allergies. Physical exam: General: Well appearing. NAD. Neck/Thyroid: Thyroid not palpable, no nodules. Skin: Mild hirsutism of sideburns and central neck. No significant hair in upper lip or chin CV: RRR, no murmur. No edema. Resp:Lungs clear to auscultation bilaterally Abdomen: Soft, nontender. nondistended Extremities/Neuro: No weakness or tremor of outstretched hands Laboratory Tests 04/06/25 13:34 Sodium 141 Creatinine 0.63 Estimated GFR > 60 Random Glucose 79 Fasting Glucose 79 Hemoglobin A1c % 4.9 Calcium 9.3 Total Bilirubin 0.5 AST 22 ALT 18 Alkaline Phosphatase 54 Albumin 4.7 TSH 0.71 FSH 3.9 Luteinizing Hormone 5.0 Prolactin 8.7 Total Testosterone 27 Fr Testosterone Dialys 2.9 DHEA Sulfate 185 PFSH Medical History Chalazion left lower eyelid Asthma Scoliosis Surgical History Hx of tonsillectomy Family History Mother H/O: hysterectomy Arthritis Sister Thyroid cancer Other Breast mass Social History Household Members Other:: Mother and younger brother Housing: House Alcohol intake: never Patient Tobacco Use Status: Never used Tobacco e-Cigarette/Vaping Use: Never Used Second Hand Smoke Exposure: No service: No Current occupational status: employed and student 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 Laboratory findings are also not supportive of hyperandrogenism. The pattern of hair growth does not fit a typical male distribution pattern seen in hirsutism. - Differential diagnosis includes: - Idiopathic, mild hirsutims. most likely - Polycystic Ovary Syndrome (PCOS) - less likely given clinical and lab findings. - Benign familial hirsutism. - Investigations planned: No further investigations are planned at this time. - Medical treatment plan: No medical treatment is indicated at this time. The typical treatments for PCOS (e.g., hormonal contraception for unopposed estrogen, metformin for metabolic syndrome, anti-androgens like spironolactone) are not applicable as they do not meet the criteria for these interventions. - Lifestyle modifications advised: Continue with current lifestyle. - Follow-up plan: Recommended watchful waiting. Advised to return for re- evaluation if there are any changes, such as worsening irregularity of menses, new or increased hair growth in other areas, or unexplained weight gain. - Referrals made: Referred back to primary care for ongoing monitoring. Plan 35 minutes spent reviewing previous records, labs, imaging, education and documenting in the chart Coding Level of Care Code New Pt Level 3 (18483) Add On Problem Visit Only Diagnoses Idiopathic hirsutism L68.0
[2025-04-27 12:45] VITALS: BP 96/58; PULSE 82; O2SAT 96; BMI 21.2
--- OUTSIDE RECORDS SUMMARY | 2025-04-27 13:45 | XMS_ITS | Encounter Summary ---
Author Organization [facility] Address [address] [place] [address] Phone Care Team Providers Care Telecom Field Technician Name Role Phone Provider, Kristen RANGEL Primary Care Provider [phone] Encounter Details Date Type Department Care Team (Late st Contact Info) Description 07/21/2015 Documentation [facility] [place] Family Medicine [address] [place] [address] Family Medicine, Physician [address] [place], [place] [phone] Social History Tobacco Use Types Packs/Day Years [...] on filedocumented in this encounter Care Teams Telecom Field Technician Relationship Specialty Start Date End Date Provider, MD Kristen [address] [place] [address] PCP - General Pediatrics 06/04/22 08/23/24 documented as of this encounter
--- OUTSIDE RECORDS SUMMARY | 2025-04-27 13:45 | XMS_ITS | Encounter Summary ---
Author Organization [facility] Address [address] [place] [address] Phone Care Team Providers Care Die Designer Name Role Phone Provider, Kristen RANGEL Primary Care Provider [phone] Encounter Details Date Type Department Care Team (Late st Contact Info) Description 12/20/2016 Conversion Encounter [facility] - [address] [phone] Social History Tobacco Use Types Packs/Day Years [...] on filedocumented in this encounter Care Teams Die Designer Relationship Specialty Start Date End Date Provider, MD Kristen [address] [place] [phone] PCP - General Pediatrics 06/04/22 08/23/24 documented as of this encounter
--- OUTSIDE RECORDS SUMMARY | 2025-04-27 13:45 | XMS_ITS | Clinical Summary ---
Author Organization [facility] '[facility] Address [address] [place] [address] Care Team Providers Care Home Agent Name Role Phone Paradise Jain MD Primary [...] so, obtain the minor's consent prior to disclosure.[facility] Social History Tobacco Use Types Packs/Day [...] patient's age to complete this topic Insurance [employer]) Care Teams Home Agent Relationship Specialty Start Date End Date Paradise Jain MD [address] [place] [address] DAVID LEARY [phone] PCP - General General Pediatrics 02/10/21
--- OUTSIDE RECORDS SUMMARY | 2025-04-27 13:45 | XMS_ITS | Encounter Summary ---
Author Organization [facility] Address [address] [place] [address] Phone Care Team Providers Care Population Geneticist Name Role Phone Provider, Kristen RANGEL Primary Care Provider [phone] Reason for Visit * Reason Comments Med Refill Encounter Details Date Type Department Care Team (Late st Contact Info) Description 12/15/2017 Refill [facility] [place] [address] [place] [address] Rani Chao NP 299 [facility] [address] [place] [address] Mild intermittent asthma without complication (Primary Dx) [...] Primary documented in this encounter Care Teams Population Geneticist Relationship Specialty Start Date End Date Provider, MD Kristen [address] [place] [phone] PCP - General Pediatrics 06/04/22 08/23/24 documented as of this encounter
--- OUTSIDE RECORDS SUMMARY | 2025-04-27 13:45 | XMS_ITS | Clinical Summary ---
Author Organization [facility] Address [address] [place] [address] Phone Care Team Providers Care Wireless Sales Associate Name Role Phone Unavailable Primary Care Provider [...] encompasses the whole body including the brain; [facility] clinician not available for warm hand off today; however, will ask Olivia Sebastian to follow up for intake;mom Mexican speaking only Assessment & Plan (07/30/2021 4:11 [...] encompasses the whole body including the brain; [employer] clinician not available for warm hand off today; however, will ask Olivia Sebastian to follow up for intake;mom Mexican speaking only BMI pediatric, 5th percentile to [...] Completed 07/24/2021, 016 Procedures * Due to [place] [employer] law, this organization might not be sharing sensitive test results. Procedure Name Priority Date/Time Associated Diagnosis Comments CHLAMYDIA AND GONORRHEA, AMPLIFIED Routine 07/24/2021 11:06 AM EDT Screening for chlamydial disease from Last 3 Months or Most Recently Relevant to Health Maintenance Results * Due to [facility] law, this organization might not be sharing sensitive test results. * Chlamydia and Gonorrhoea, Amplified (07/24/2021 11:06 AM EDT) Chlamydia Trachomatis, DNA Probe NEGATIVE (NEG) [facility] Comment: No Chlamydia Trachomatis RNA detected in this patient's sample (REFERENCE RANGE/NORMAL VALUE: NOT DETECTED) Note: This test uses intensivist- mediated amplification method to detect rRNA from C. Trachomatis URINE GC AMP PROBE NEGATIVE (NEG) [facility] Comment: No Neisseria Gonorrhoeae RNA detected in this patient's sample (REFERENCE RANGE/NORMAL VALUE: NOT DETECTED) NOTE: This test uses intensivist-mediated amplification method to detect rRNA from N.Gonorrhoeae. [...] without risk of sexual abuse. Consult the [facility] if needed. Contact phone number . Therapeutic failure or success cannot be determined with the Aptima Combo2 assay since nucleic acid may persist following appropriate antimicrobial therapy. The Centers for Disease Control and Prevention (CDC) recommends confirmatory retesting using culture or a different nucleic acid amplification test when positive results occur, if indicated. Testing performed or reported by [facility], a Service of [facility], [address] [place] [place] [address] Altaf Guallpa MD, Licensed Guide [facility]# [id number] Urine (Urine) 07/24/2021 11: 06 AM EDT 07/24/2021 6:51 PM EDT us Chantal Ferrari NP LAB MICROBIOLOGY - GENERAL ORDER MAKAYLA Final Result [facility] from Last 3 Months or Most Recently Relevant to Health Maintenance
--- OUTSIDE RECORDS SUMMARY | 2025-04-27 13:45 | XMS_ITS | Encounter Summary ---
Author Organization [facility] Address [address] [place] [address] Phone Care Team Providers Care Verification Clerk Name Role Phone Provider, Kristen RANGEL Primary Care Provider [phone] Encounter Details Date Type Department Care Team (Late st Contact Info) Description 08/10/2010 Documentation [facility] [place] [address] [place] [address] Family Medicine, Physician [address] [place], [place] [address] Social History Tobacco Use Types Packs/Day Years [...] on filedocumented in this encounter Care Teams Verification Clerk Relationship Specialty Start Date End Date Provider, MD Kristen [address] [place] [address] PCP - General Pediatrics 06/04/22 08/23/24 documented as of this encounter
--- OUTSIDE RECORDS SUMMARY | 2025-04-27 13:45 | XMS_ITS | Encounter Summary ---
Author Organization [facility] Address [address] [place], [place] [phone] Phone Care Team Providers Care Hotel Reservationist Name Role Phone Provider, Kristen RANGEL Primary Care Provider [phone] Reason for Visit * Reason Comments Med Refill Encounter Details Date Type Department Care Team (Late st Contact Info) Description 05/27/2020 Refill [facility] [place] [address] [place] [address] Osmel Tucker MD [address] [place] [address] Mild intermittent asthma without complication Social History [...] complication documented in this encounter Care Teams Hotel Reservationist Relationship Specialty Start Date End Date Provider, MD Kristen [address] [place] [phone] PCP - General Pediatrics 06/04/22 08/23/24 documented as of this encounter
--- OUTSIDE RECORDS SUMMARY | 2025-04-27 13:45 | XMS_ITS | Encounter Summary ---
Author Organization [facility] Address [address] [place] [address] Phone Care Team Providers Care Sofa Cover Inspector Name Role Phone Provider, Kristen RANGEL Primary Care Provider [phone] Reason for Visit * Reason Onset Date Comments Med Refill Med Refill 10/31/2020 Encounter Details Date Type Department Care Team (Late st Contact Info) Description 10/22/2020 Refill [facility] [place] [address] [place] [address] Kadi Álvarez MD [address] [place] [address] Onychomycosis; Tinea pedis of both feet Social [...] feet documented in this encounter Care Teams Sofa Cover Inspector Relationship Specialty Start Date End Date Provider, MD Kristen [address] [place] [phone] PCP - General Pediatrics 06/04/22 08/23/24 documented as of this encounter
== END 2025-04-27 14:19 | disposition home or self-care (01) ==
LOC: HO.ENCR 12:42
PROVIDERS: Visit Provider Student in an Organized Health Care Education/Training Program
DX: L68.0 Hirsutism (principal)
CPT/HCPCS: 99203

== ENCOUNTER → 2025-04-27 12:41 | Outpatient (BNVA) | payer OTHER, SELFPAY | PROVIDERS: Visit Provider Student in an Organized Health Care Education/Training Program | DX: L68.0 Hirsutism (principal) | CPT/HCPCS: 99202 ==

== ENCOUNTER 2025-04-28 10:34 | Outpatient (AMB) | payer OTHER, SELFPAY ==
[2025-04-28 10:36] VITALS: BP 118/78; PULSE 80; RESP 18; O2SAT 98; BMI 21.4
--- NOTE | 2025-04-28 10:36 | A.OFFPC_ITS ---
Vital Signs 04/28/25 10:36 Height 5 ft 1 in Weight 113 lb 2 oz BMI 21.4 BP 118/78 Blood Pressure Location Lt brachial Position Sitting Respiration 18 Pulse 80 Pulse Source Pulse Oximeter Temp Source Temporal Artery Scan Pulse Oximetry (%) 98 Oxygen Delivery Method Room Air Intake Visit Reasons: lump in throat/hisutism Industrial Controls Technician Required: No Accompanied by: Self / Same As Patient Allergies No Known Allergies Allergy (Verified 04/28/25 10:51) Medication List - Last Reconciled 04/28/25 by TROY Michel albuterol sulfate 90 mcg/actuation 2 puffs inhalation Q4-6H PRN valacyclovir 1,000 mg PO Q12H 7 days Tobacco use date assessed: 04/28/25 Dental Screening Dental Screen Date: 04/28/25 Did you have a dental visit in the last 12 months?: Yes Did you have a dental problem in the last 6 months where you did not have access to dental care?: No Was dental information given to patient?: Patient has dentist HPI HPI Comments History of Present Illness Details History of Present Illness The patient is a 19 year old female presenting for follow-up on dysphagia and new onset fatigue and dizziness. She has a longstanding issue with swallowing, which she feels has improved recently, and is scheduled for a swallow test in May for further evaluation. She reports new symptoms of significant fatigue and dizziness that began last week. She reports her daily fluid intake consists of only one and a half bottles of water, in addition to juice and a lot of coffee. She has also had a persistent snuffle and feeling of nasal stuffiness since having COVID-19 two years ago, for which she has not been formally evaluated. She endorses sleeping for long periods but not feeling rested, and has recently been mouth-breathing during sleep. Previous concerns about hirsutism were evaluated by an food cooking machine operator, and labs were normal, suggesting a genetic cause. Lab work from August of this year, including a CBC, electrolytes, and kidney, liver, cholesterol, and thyroid function, were all within normal limits. Health Maintenance - Advised to increase daily water intake to 6-8 bottles to improve hydration. - Scheduled for a swallow study in [facility] to evaluate dysphagia. - Labs ordered to recheck CBC. Social History - Nutrition/Fluid Intake: Reports drinki ng one and a half bottles of water per day, along with juice and a lot of coffee. - Substance Use: Denies significant alco hol use, reporting she only drinks at parties. - Sleep: Reports sleeping for long perio ds but still feeling tired; endorses recent mouth breathing during sleep. - Employment: Works at a [employer]. Results - Labs (from August): CBC, electrolytes, kidney function, liver function, cholesterol, and thyroid studies were all within normal limits. 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 [employer] Cognitive needs: No Hearing needs: No Vision needs: No Female Reproductive History Menstrual Age of Menarche: 9 Questionnaire Thrive Questionnaire Date Thrive assessed: 04/28/25 I am a: Patient What is your living situation today?: I have a steady place to live Within the past 12 months, did the food you bought not last and you didn't have the money to get more?: I choose not to answer this question Within the past 12 months, did you worry whether your food would run out before you got money to buy more?: I choose not to answer this question Do you have trouble paying for medicines?: No Do you have trouble getting transportation to medical appointments?: No Do you have trouble paying your heating and electricity bill?: Yes Do you have trouble taking care of your child, family member or friend?: No Do you have trouble with day-to-day activities such as bathing, preparing meals, shopping, managing finances, etc.?: No Are you currently unemployed and looking for a job?: No Are you interested in more education?: I choose not to answer this question Currently or been in a relationship where the following occur: No concerns reported THRIVE Score: 1 SANDEEP-7 AMB Questionnaire SANDEEP-7 Date SANDEEP - 7 assessed: 09/04/24 Source: Developed by Drs. Milo Almeida, Corrina Garcia, Manoj Aguayo and colleagues, with an educational damaris from [employer]. Review of Systems Narrative Review of Systems - General: Reports significant fatigue and feeling tired despite long hours of sleep. Reports recent onset of dizziness. - HEENT: Reports a chronic snuffle and feeling of nasal congestion for two years. Reports recent mouth breathing during sleep. Denies known allergies, post-nasal drip, or sinus pain. - Gastrointestinal: Reports intermittent difficulty swallowing, which has been improving. Const Reports fatigue Eyes Reports no additional complaints ENT Reports dysphagia, Reports dizziness (Intermittent) and Reports nasal congestion Card Denies chest pain, Denies syncope, Denies edema, Denies irregular heart rhythm, Denies lightheadedness and Denies dyspnea Resp Denies cough and Denies dyspnea GI Reports dysphagia Reports no additional complaints Musc Reports no additional complaints and Denies abnormal gait Skin/Breast Reports system reviewed and no additional complaints, except as documented Neuro Denies abnormal gait, Reports dizziness (Intermittent) and Denies syncope Psych Reports no additional complaints Endo Reports fatigue Physical exam (Primary Care) Vital Signs: Last Vital Signs Pulse 80 04/28/25 10:36 Resp 18 04/28/25 10:36 BP 118/78 04/28/25 10:36 Pulse Ox 98 04/28/25 10:36 Oxygen Delivery Method Room Air 04/28/25 10:36 BMI result Body Mass Index 21.4 Tobacco/Smoking Status: Tobacco use Status Tobacco use date assessed 04/28/25 04/28/25 10:41 Patient Tobacco Use Status Never used Tobacco 04/28/25 10:41 e-Cigarette/Vaping Use Never Used 04/28/25 10:41 Thrive Assessment: Date of Thrive Assessment Date Thrive assessed 04/28/25 04/28/25 10:41 Currently or been in a relationship where the following occur: No concerns reported Narrative Physical Exam - Vitals: Blood pressure 118/78 mmHg. - HEENT: External ear canals and tympanic membranes are clear bilaterally. Nasal examination reveals severely swollen turbinates bilaterally, nearly occluding the nasal passages. Yellowish drainage is noted in the right nostril. There is no sinus tenderness to palpation. - Lungs: Clear to auscultation bilaterally. Const General: cooperative Orientation/consciousness: patient oriented x3 HENMT Head: Yes normocephalic Ears: TM's normal bilaterally General nose exam: Abnormal mucous membranes and turbinates present boggy bilateral and erythematous bilateral and Nasal discharge present purulent on the right Eyes General: appearance normal, both eyes and all related structures Conjunctivae: conjunctivae normal Neck Neck: Yes full ROM and Yes no lymphadenopathy Resp Effort & Inspection: normal respiratory effort Auscultation: clear to auscultation bilaterally, no crackles, no rales, no rhonchi and no wheezes Cardio Rate: regular rate Rhythm: regular rhythm Heart sounds: S1 normal heart sound present and S2 normal heart sound present Skin General skin exam: no rashes or lesions noted Neuro General: patient oriented x3 Cranial nerves: Yes CN's II-XII intact bilaterally and Yes Nystagmus not present Gait exam (Neuro): Normal gait present Motor exam (neuro): 5/5 motor strength present throughout Extrem General: Yes normal to inspection, Yes full ROM and No edema Psych Affect: normal affect Attitude: cooperative Insight: Good insight present (Psych) Judgement: Good judgement present (Psych) Coding Level of Care Code Est Pt Level 4 (93962) Diagnoses Rhinosinusitis J32.9 Dizziness R42 Fatigue, unspecified type R53.83 Fatigue type: unspecified Dysphagia, unspecified type R13.10 Dysphagia type: unspecified Hirsutism L68.0 Time Spent (min) 38 Assessment & Plan Assessment & Plan (1) Rhinosinusitis: Code(s): J32.9 - Chronic sinusitis, unspecified Category: Medical (2) Dizziness: Code(s): R42 - Dizziness and giddiness Category: Medical (3) Fatigue: Code(s): R53.83 - Other fatigue Category: Medical Qualifiers: Fatigue type: unspecified Qualified Code(s): R53.83 - Other fatigue (4) Dysphagia: Code(s): R13.10 - Dysphagia, unspecified Category: Medical Qualifiers: Dysphagia type: unspecified Qualified Code(s): R13.10 - Dysphagia, unspecified (5) Hirsutism: Code(s): L68.0 - Hirsutism Category: Medical Plan Plan Patient was informed and verbally consented to the use of an ambient scribe for clinic note documentation during this visit. 1. Acute Sinusitis, Unspecified The patient was diagnosed with an acute sinus infection based on exam findings of severely swollen nasal turbinates and yellowish drainage. It is suspected that her fatigue is exacerbated by this condition, as the nasal obstruction is causing her to mouth-breathe and likely not get enough oxygen during sleep. The plan is to treat the infection with Augmentin twice daily for seven days, with instructions to take it with food. To manage inflammation, she will use Flonase nasal spray, 1-2 sprays per nostril twice daily. It was discussed that an underlying environmental allergy may be a contributing factor, and OTC antihistamines like Zyrtec or Claritin were recommended for as-needed use. If her symptoms do not improve, a course of oral prednisone may be considered, and she was instructed to call for follow-up. 2. Fatigue, Dizziness, And Dehydration The patient's fatigue and dizziness are considered multifactorial, likely resulting from poor hydration, the acute sinus infection, and subsequent poor sleep quality. Her reported intake of 1.5 bottles of water daily, coupled with high coffee consumption which acts as a diuretic, strongly suggests dehydration. She was strongly advised to increase her water intake to 6-8 bottles per day to help alleviate these symptoms. A repeat CBC was ordered to rule out anemia as a contributing cause, as her last test was several months ago. 3. Dysphagia, Unspecified The patient has a chronic history of dysphagia, which she reports is improving. The plan is to proceed with the scheduled swallow study in May to obtain a definitive diagnosis and conclude this chapter of her evaluation. 4. Hirsutism FSH, LH, prolactin, testosterone and DHEA were all normal. No hyperpigmentation or irregular periods. No evidence of the patient concerns of PCOS. We will continue to monitor. Discussion Notes I discussed my findings with the patient, explaining that the exam of her nose revealed a sinus infection, characterized by severely swollen turbinates and yellowish drainage. I explained that this infection and the resulting nasal obstruction are a likely cause of her fatigue, as it is leading to mouth breathing at night and consequently poor quality sleep due to reduced oxygen intake. I also emphasized that her very low water intake and high coffee consumption are likely causing dehydration, contributing significantly to her dizziness and fatigue. I outlined the treatment plan, including a 7-day course of Augmentin for the infection and the use of Flonase nasal spray to reduce inflammation. I informed her of potential side effects of Augmentin, such as stomach upset and diarrhea, and advised taking it with food. We also discussed the possibility of underlying environmental allergies contributing to her chronic congestion, and I r ecommended [id number] options like Zyrtec or Claritin. I ordered a repeat CBC to rule out anemia and advised her to proceed with her scheduled swallow study. I instructed her to call if her sinus symptoms do not improve, as a short course of prednisone might be necessary. Patient Instructions - You have been diagnosed with a sinus infection. Please take the prescribed antibiotic, Augmentin, twice a day for 7 days. Make sure to take it with food to avoid stomach upset. - Use the Flonase nasal spray to help with the swelling in your nose. You can use one or two sprays in each nostril, twice a day (morning and evening). - It is very important to increase your water intake to 6-8 bottles per day. This will help with the dehydration, dizziness, and fatigue. - You may have underlying allergies. You can buy [id number] allergy pills like Zyrtec or Claritin and take them as needed to help with nasal stuffiness. - Please go to the lab to have your blood drawn for a complete blood count (CBC). - Continue with your plan to have the swallow study in May. - If your sinus symptoms do not get better after taking the antibiotic and using the nasal spray, please call our office. Orders: Orders Complete Blood Count Auto Diff 04/28/25 R53.83 - Other fatigue IRON PROFILE 04/28/25 R53.83 - Other fatigue Medications: New amoxicillin-pot clavulanate 875-125 mg 1 tab PO BID 14 tabs 0RF 7 days fluticasone propionate 50 mcg/actuation administer into each nostril 1 spray intranasal BID 16 grams 0RF
--- OUTSIDE RECORDS SUMMARY | 2025-04-28 10:43 | XMS_ITS | Encounter Summary ---
Author Organization [facility] Address [address] [place] [address] Phone Care Team Providers Care Tube Splicer Name Role Phone Provider, Kristen RANGEL Primary Care Provider [phone] Reason for Visit * Reason Onset Date Comments Med Refill Med Refill 10/31/2020 Encounter Details Date Type Department Care Team (Late st Contact Info) Description 10/22/2020 Refill [facility] [place] [address] [place] [address] Kadi Álvarez MD [address] [place] [address] Onychomycosis; Tinea pedis of both feet Social [...] feet documented in this encounter Care Teams Tube Splicer Relationship Specialty Start Date End Date Provider, MD Kristen [address] [place] [phone] PCP - General Pediatrics 06/04/22 08/23/24 documented as of this encounter
--- OUTSIDE RECORDS SUMMARY | 2025-04-28 10:43 | XMS_ITS | Clinical Summary ---
Author Organization [facility] Address [address] [place] [address] Care Team Providers Care Medical Lab Technologist Name Role Phone Paradise Jain MD Primary [...] to complete this topic Insurance [facility] ([employer]) Care Teams Medical Lab Technologist Relationship Specialty Start Date End Date Paradise Jain MD [address] [place] [address] DAVID LEARY [phone] PCP - General General Pediatrics 02/10/21
--- OUTSIDE RECORDS SUMMARY | 2025-04-28 10:43 | XMS_ITS | Clinical Summary ---
Author Organization [facility] Address [address] [place] [phone] Phone Care Team Providers Care Consultative Sales Associate Name Role Phone Unavailable Primary [...] encompasses the whole body including the brain; [facility] clinician not available for warm hand off today; however, will ask Olivia Sebastian to follow up for intake;mom Serbian speaking only Assessment & Plan (07/30/2021 4:11 [...] encompasses the whole body including the brain; TEAM SUPERVISOR clinician not available for warm hand off today; however, will ask Olivia Sebastian to follow up for intake;mom Serbian speaking only BMI pediatric, 5th percentile to [...] Completed 07/24/2021, 016 Procedures * Due to [employer] law, this organization might not be sharing sensitive test results. Procedure Name Priority Date/Time Associated Diagnosis Comments CHLAMYDIA AND GONORRHEA, AMPLIFIED Routine 07/24/2021 11:06 AM EDT Screening for chlamydial disease from Last 3 Months or Most Recently Relevant to Health Maintenance Results * Due to [facility] law, this organization might not be sharing sensitive test results. * Chlamydia and Gonorrhoea, Amplified (07/24/2021 11:06 AM EDT) Chlamydia Trachomatis, DNA Probe NEGATIVE (NEG) [facility] Comment: No Chlamydia Trachomatis RNA detected in this patient's sample (REFERENCE RANGE/NORMAL VALUE: NOT DETECTED) Note: This test uses air control/anti air warfare officer- mediated amplification method to detect rRNA from C. Trachomatis URINE GC AMP PROBE NEGATIVE (NEG) [facility] Comment: No Neisseria Gonorrhoeae RNA detected in this patient's sample (REFERENCE RANGE/NORMAL VALUE: NOT DETECTED) NOTE: This test uses air control/anti air warfare officer-mediated amplification method to detect rRNA from N.Gonorrhoeae. [...] without risk of sexual abuse. Consult the [facility] if needed. Contact phone number . Therapeutic failure or success cannot be determined with the Aptima Combo2 assay since nucleic acid may persist following appropriate antimicrobial therapy. The Centers for Disease Control and Prevention (CDC) recommends confirmatory retesting using culture or a different nucleic acid amplification test when positive results occur, if indicated. Testing performed or reported by [facility], a Service of [facility], [address] [place] [address] Altaf Guallpa MD, Stack Yield Engineer [facility]# [id number] Urine (Urine) 07/24/2021 11: 06 AM EDT 07/24/2021 6:51 PM EDT us Chantal Ferrari NP LAB MICROBIOLOGY - GENERAL ORDER MAKAYLA Final Result [facility] from Last 3 Months or Most Recently Relevant to Health Maintenance
--- OUTSIDE RECORDS SUMMARY | 2025-04-28 10:43 | XMS_ITS | Encounter Summary ---
Author Organization [facility] Address [address] [place], [place] [id number] Phone Care Team Providers Care Mussel Opener Name Role Phone Provider, Kristen RANGEL Primary Care Provider [phone] Reason for Visit * Reason Comments Med Refill Encounter Details Date Type Department Care Team (Late st Contact Info) Description 05/27/2020 Refill [facility] [place] [address] [place] [address] Osmel Tucker MD [address] [place] [address] Mild intermittent asthma without complication Social History [...] complication documented in this encounter Care Teams Mussel Opener Relationship Specialty Start Date End Date Provider, MD Kristen [address] [place] [phone] PCP - General Pediatrics 06/04/22 08/23/24 documented as of this encounter
--- OUTSIDE RECORDS SUMMARY | 2025-04-28 10:43 | XMS_ITS | Encounter Summary ---
Author Organization [facility] Address [address] [place] [address] Phone Care Team Providers Care Professor Of Business Name Role Phone Provider, Kristen RANGEL Primary Care Provider [phone] Encounter Details Date Type Department Care Team (Late st Contact Info) Description 08/10/2010 Documentation [facility] Family Medicine [address] [place] [address] Family Medicine, Physician [address] [place], [place] [phone] Social History Tobacco Use Types Packs/Day Years [...] on filedocumented in this encounter Care Teams Professor Of Business Relationship Specialty Start Date End Date Provider, MD Kristen [address] [place] [phone] PCP - General Pediatrics 06/04/22 08/23/24 documented as of this encounter
--- OUTSIDE RECORDS SUMMARY | 2025-04-28 10:43 | XMS_ITS | Encounter Summary ---
Author Organization [facility] Address [address] [place] [address] Phone Care Team Providers Care Cost Estimating Engineer Name Role Phone Provider, Kristen RANGEL Primary Care Provider [phone] Reason for Visit * Reason Comments Med Refill Encounter Details Date Type Department Care Team (Late st Contact Info) Description 12/15/2017 Refill [facility] [place] [address] [place] [address] Rani Chao NP [address] [facility] [address] [place] [address] Mild intermittent asthma without complication (Primary Dx) [...] Primary documented in this encounter Care Teams Cost Estimating Engineer Relationship Specialty Start Date End Date Provider, MD Kristen [address] [place] [phone] PCP - General Pediatrics 06/04/22 08/23/24 documented as of this encounter
--- OUTSIDE RECORDS SUMMARY | 2025-04-28 10:43 | XMS_ITS | Encounter Summary ---
Author Organization [facility] Address [address] [place] [address] Phone Care Team Providers Care Embossing Toolsetter Name Role Phone Provider, Kristen RANGEL Primary Care Provider [phone] Encounter Details Date Type Department Care Team (Late st Contact Info) Description 12/20/2016 Conversion Encounter [facility] - [address] [id number] Social History Tobacco Use Types Packs/Day Years [...] on filedocumented in this encounter Care Teams Embossing Toolsetter Relationship Specialty Start Date End Date Provider, MD Kristen [address] [place] [phone] PCP - General Pediatrics 06/04/22 08/23/24 documented as of this encounter
--- OUTSIDE RECORDS SUMMARY | 2025-04-28 10:43 | XMS_ITS | Encounter Summary ---
Author Organization [facility] Address [address] [place] [address] Phone Care Team Providers Care Tax Manager Name Role Phone Provider, Kristen RANGEL Primary Care Provider [phone] Encounter Details Date Type Department Care Team (Late st Contact Info) Description 07/21/2015 Documentation [facility] [place] [address] [place] [address] Family Medicine, Physician [address] [place], [place] [phone] Social History Tobacco Use Types Packs/Day Years [...] on filedocumented in this encounter Care Teams Tax Manager Relationship Specialty Start Date End Date Provider, MD Kristen [address] [place] [phone] PCP - General Pediatrics 06/04/22 08/23/24 documented as of this encounter
== END 2025-04-28 11:21 | disposition home or self-care (01) ==
LOC: HO.HMCH 10:34
DX: J32.9 Chronic sinusitis, unspecified (principal); R42 Dizziness and giddiness; R53.83 Other fatigue; R13.10 Dysphagia, unspecified; L68.0 Hirsutism

== ENCOUNTER → 2025-04-28 10:34 | Outpatient (BNVA) | payer OTHER, SELFPAY | DX: L68.0 Hirsutism (principal); R42 Dizziness and giddiness; J32.9 Chronic sinusitis, unspecified; R53.83 Other fatigue; R13.10 Dysphagia, unspecified | CPT/HCPCS: 99212 ==